=== PATIENT | female | born 1950 | race Caucasian/White ===

== ENCOUNTER → 2016-11-04 | Outpatient (CLI) | payer BC | LOC: SUN.DIA 08:47 | DX: E11.9 Type 2 diabetes mellitus without complications (principal); E78.5 Hyperlipidemia, unspecified; I10 Essential (primary) hypertension; Z68.36 Body mass index [BMI] 36.0-36.9, adult; Z71.3 Dietary counseling and surveillance; Z87.891 Personal history of nicotine dependence | CPT/HCPCS: G0108 ==

== ENCOUNTER → 2016-11-11 | Outpatient (CLI) | payer BC | LOC: SUN.DIA 10:45 | DX: E11.65 Type 2 diabetes mellitus with hyperglycemia (principal); E66.8 Other obesity; Z68.36 Body mass index [BMI] 36.0-36.9, adult; E78.5 Hyperlipidemia, unspecified; I10 Essential (primary) hypertension; Z71.3 Dietary counseling and surveillance; Z87.891 Personal history of nicotine dependence; Z79.84 Long term (current) use of oral hypoglycemic drugs | CPT/HCPCS: G0108 ==

== ENCOUNTER → 2016-12-14 | Outpatient (CLI) | payer BC | LOC: SUN.DIA 09:31 | DX: E11.9 Type 2 diabetes mellitus without complications (principal); E66.9 Obesity, unspecified; Z68.36 Body mass index [BMI] 36.0-36.9, adult; Z71.3 Dietary counseling and surveillance ==

== ENCOUNTER → 2016-12-23 | Outpatient (CLI) | payer BC | LOC: SUN.DIA 11:18 | DX: Z01.89 Encounter for other specified special examinations (principal) ==

== ENCOUNTER → 2016-12-23 | Outpatient (CLI) | payer BC | LOC: SUN.DIA 11:04 | DX: E11.9 Type 2 diabetes mellitus without complications (principal); Z68.36 Body mass index [BMI] 36.0-36.9, adult; Z71.3 Dietary counseling and surveillance; Z87.891 Personal history of nicotine dependence | CPT/HCPCS: G0108 ==

== ENCOUNTER 2017-04-11 20:08 | Inpatient (IN) | payer BC ==
[~2017-04-11] VITALS: Ht 162.6 cm; Wt 102.1 kg
[2017-04-11 21:39] LABS: HEMATOCRIT 42.1 % (37.0-47.0); HEMOGLOBIN 13.6 g/dl (12.5-16.0); MEAN CELL VOLUME 93 fl (80.0-100.0); MEAN CORPUSCULAR HEMOGLOBIN 30 pg (27.0-31.0); MEAN CORPUSCULAR HGB CONC 32 g/dl (33.0-37.0); MEAN PLATELET VOLUME 11.6 fl (7.4-10.4); PLATELET COUNT 299 K/mm3 (130-400); RED BLOOD COUNT 4.55 M/mm3 (4.10-5.30)
[2017-04-11] MEDS ORDERED: CEPHALEXIN500 M1 PO (21:43)
[2017-04-11] MEDS ORDERED: TRULICITY1.5 MG/0.5 SQ (21:43)
[2017-04-11] MEDS ORDERED: PRINIVIL10 MG PO (21:44)
[2017-04-11 21:45] LABS: ALBUMIN 4.2 gm/dL (3.5-5.0); CALCIUM 10.7 mg/dL (8.4-10.2); CREATININE, serum 0.74 mg/dL (0.52-1.25); POTASSIUM 4.2 mmol/L (3.4-5.0); TOTAL PROTEIN 7.7 gm/dL (6.4-8.2)
[2017-04-11] MEDS ORDERED: JENTADUETO 2.51 TAB PO (21:45)
[2017-04-11] MEDS ORDERED: ZOCOR 10MG10 MG PO (21:45)
[2017-04-11 21:54] LABS: BAND 25 % (0-10); LYMPHOCYTE 6 % (20.0-51.0); NEUTROPHILS 60 % (42.0-75.2)
[2017-04-11 21:55] LABS: PLATELET ESTIMATE NORMAL (NORMAL)
[2017-04-12] VITALS (915 sets, daily range): BP systolic 109–150; BP diastolic 54–82; PULSE 105–126; TEMP 98.7–99.3; O2SAT 87–100
[2017-04-12 03:09] LABS: BASO # 0.1 (0.0-0.2); BASO % 0.2 % (0.0-2.0); GRAN % 78.7 % (42.2-75.2); HEMOGLOBIN 12.1 g/dl (12.5-16.0); LYMPH # 1.9 (1.2-3.4); LYMPH % 8.4 % (20.0-51.0); MEAN CELL VOLUME 94 fl (80.0-100.0); MEAN CORPUSCULAR HEMOGLOBIN 30 pg (27.0-31.0); MEAN CORPUSCULAR HGB CONC 32 g/dl (33.0-37.0); MEAN PLATELET VOLUME 10.9 fl (7.4-10.4); MONO # 2.6 (0.1-0.6); MONO % 11.5 % (1.7-9.3); PLATELET COUNT 275 K/mm3 (130-400); RED BLOOD COUNT 4.05 M/mm3 (4.10-5.30); REDCELL DISTRIBUTION WIDTH-CV 13.9 % (11.5-14.5)
[2017-04-12 03:16] LABS: INR 1.1 (0.8-3.0); PROTHROMBIN TIME 13.3 SECONDS (9.7-12.8)
[2017-04-12 03:19] LABS: SALICYLATE < 1.0 mg/dL
[2017-04-12 03:19] LABS: ARTERIAL BLD GAS O2 SATURATION 94.9 % (92-100); ARTERIAL BLD GAS TCO2 CT 12.3; ARTERIAL BLOOD GAS BASE EXCESS -13.5 (-2-2); ARTERIAL BLOOD GAS HCO3 11.5 meq/L (22-26); ARTERIAL BLOOD GAS PCO2 25.1 mmHg (35-45); ARTERIAL BLOOD GAS PO2 80.8 mmHg (80-100); ARTERIAL BLOOD GAS pH 7.28 (7.35-7.45)
[2017-04-12 03:32] LABS: TROPONIN-I < 0.012 ng/mL (0.000-0.034)
[2017-04-12 04:15] LABS: ALBUMIN 3.6 gm/dL (3.5-5.0); BILIRUBIN,TOTAL 0.7 mg/dL (0.0-1.0); CALCIUM 10.1 mg/dL (8.4-10.2); CREATININE, serum 0.56 mg/dL (0.52-1.25); POTASSIUM 3.5 mmol/L (3.4-5.0); TOTAL PROTEIN 7.1 gm/dL (6.4-8.2)
[2017-04-12 04:51] LABS: MUCOUS Present /lpf; PH 5 (5-8); SQUAMOUS EPITHELIAL 0-2 /hpf; URINE APPEARANCE Hazy; URINE BACTERIA None Seen /hpf; URINE BILIRUBIN Negative (NEGATIVE); URINE BLOOD Negative (NEGATIVE); URINE COLOR Yellow; URINE GLUCOSE 3+ (NEGATIVE); URINE KETONE 1+ (NEGATIVE); URINE LEUKOCYTE ESTERASE Negative (NEGATIVE); URINE NITRATE Negative (NEGATIVE); URINE PROTEIN(semi-quant) 1+ (NEGATIVE); URINE RBC 0-2 /hpf; URINE UROBILINOGEN Negative (NEGATIVE)
[2017-04-12 04:57] LABS: COLLECTION METHOD CLEAN CATCH
[2017-04-12 09:07] LABS: CALCIUM 9.9 mg/dL (8.4-10.2); CREATININE, serum 0.46 mg/dL (0.52-1.25); POTASSIUM 3.2 mmol/L (3.4-5.0)
[2017-04-12 13:03] LABS: CALCIUM 9.1 mg/dL (8.4-10.2); CREATININE, serum 0.42 mg/dL (0.52-1.25); POTASSIUM 3.4 mmol/L (3.4-5.0)
[2017-04-12 20:46] LABS: CALCIUM 7.2 mg/dL (8.4-10.2); CREATININE, serum 0.39 mg/dL (0.52-1.25)
[2017-04-12 20:48] LABS: POTASSIUM 2.8 mmol/L (3.4-5.0)
[2017-04-13] VITALS (1088 sets, daily range): BP systolic 118–157; BP diastolic 63–94; PULSE 110–123; TEMP 97.9–99.9; O2SAT 95–100
[2017-04-13 05:49] LABS: INR 1.2 (0.8-3.0); PROTHROMBIN TIME 14.1 SECONDS (9.7-12.8)
[2017-04-13 05:50] LABS: ARTERIAL BLD GAS O2 SATURATION 94.1 % (92-100); ARTERIAL BLD GAS TCO2 CT 16.4; ARTERIAL BLOOD GAS BASE EXCESS -8.6 (-2-2); ARTERIAL BLOOD GAS HCO3 15.5 meq/L (22-26); ARTERIAL BLOOD GAS PCO2 27.7 mmHg (35-45); ARTERIAL BLOOD GAS PO2 68.1 mmHg (80-100); ARTERIAL BLOOD GAS pH 7.37 (7.35-7.45)
[2017-04-13 07:22] LABS: BASO % 0.2 % (0.0-2.0); CALCIUM 8.4 mg/dL (8.4-10.2); CREATININE, serum 0.47 mg/dL (0.52-1.25); EOS % 0.1 % (0-4.0); GRAN # 10.2 (1.4-6.5); GRAN % 75.7 % (42.2-75.2); LYMPH # 1.7 (1.2-3.4); LYMPH % 12.8 % (20.0-51.0); MEAN CELL VOLUME 93 fl (80.0-100.0); MEAN CORPUSCULAR HGB CONC 32 g/dl (33.0-37.0); MEAN PLATELET VOLUME 11.3 fl (7.4-10.4); MONO # 1.3 (0.1-0.6); MONO % 9.5 % (1.7-9.3); PLATELET COUNT 233 K/mm3 (130-400); POTASSIUM 3.2 mmol/L (3.4-5.0); RED BLOOD COUNT 3.48 M/mm3 (4.10-5.30); REDCELL DISTRIBUTION WIDTH-CV 14.4 % (11.5-14.5)
[2017-04-13 07:23] LABS: ALBUMIN 2.6 gm/dL (3.5-5.0); BILIRUBIN,TOTAL 0.6 mg/dL (0.0-1.0); HEMATOCRIT 32.5 % (37.0-47.0); HEMOGLOBIN 10.4 g/dl (12.5-16.0); MEAN CORPUSCULAR HEMOGLOBIN 30 pg (27.0-31.0); TOTAL PROTEIN 5.8 gm/dL (6.4-8.2)
[2017-04-13 21:50] LABS: CALCIUM 8.8 mg/dL (8.4-10.2); CREATININE, serum 0.42 mg/dL (0.52-1.25); POTASSIUM 3.7 mmol/L (3.4-5.0)
[2017-04-14] VITALS (491 sets, daily range): BP systolic 117–168; BP diastolic 70–87; PULSE 101–108; TEMP 98.5–99.3; O2SAT 82–100
[2017-04-14 05:56] LABS: BASO % 0.3 % (0.0-2.0); EOS # 0.4 (0.0-0.7); EOS % 2.5 % (0-4.0); GRAN # 9.9 (1.4-6.5); GRAN % 69.9 % (42.2-75.2); LYMPH # 2.4 (1.2-3.4); LYMPH % 17.2 % (20.0-51.0); MEAN CELL VOLUME 93 fl (80.0-100.0); MEAN CORPUSCULAR HGB CONC 32 g/dl (33.0-37.0); MEAN PLATELET VOLUME 10.4 fl (7.4-10.4); MONO # 1.3 (0.1-0.6); MONO % 8.9 % (1.7-9.3); PLATELET COUNT 269 K/mm3 (130-400); RED BLOOD COUNT 3.53 M/mm3 (4.10-5.30); REDCELL DISTRIBUTION WIDTH-CV 14.1 % (11.5-14.5)
[2017-04-14 05:58] LABS: HEMATOCRIT 32.7 % (37.0-47.0); HEMOGLOBIN 10.6 g/dl (12.5-16.0); MEAN CORPUSCULAR HEMOGLOBIN 30 pg (27.0-31.0)
[2017-04-14 06:04] LABS: INR 1.2 (0.8-3.0); PROTHROMBIN TIME 13.6 SECONDS (9.7-12.8)
[2017-04-14 06:11] LABS: ALBUMIN 2.6 gm/dL (3.5-5.0); BILIRUBIN,TOTAL 0.6 mg/dL (0.0-1.0); CALCIUM 8.5 mg/dL (8.4-10.2); CREATININE, serum 0.41 mg/dL (0.52-1.25); POTASSIUM 3.4 mmol/L (3.4-5.0); TOTAL PROTEIN 5.8 gm/dL (6.4-8.2)
[2017-04-15 00:51] VITALS: BP 125/68; PULSE 78; TEMP 98.2
[2017-04-15 04:59] VITALS: BP 131/66; PULSE 118; TEMP 98.2
[2017-04-15 06:46] LABS: MEAN CELL VOLUME 92 fl (80.0-100.0); MEAN CORPUSCULAR HGB CONC 32 g/dl (33.0-37.0); MEAN PLATELET VOLUME 10.4 fl (7.4-10.4); PLATELET COUNT 274 K/mm3 (130-400); RED BLOOD COUNT 3.58 M/mm3 (4.10-5.30); REDCELL DISTRIBUTION WIDTH-CV 13.9 % (11.5-14.5)
[2017-04-15 06:48] LABS: HEMATOCRIT 32.9 % (37.0-47.0); HEMOGLOBIN 10.6 g/dl (12.5-16.0); MEAN CORPUSCULAR HEMOGLOBIN 30 pg (27.0-31.0)
[2017-04-15 06:59] LABS: ALBUMIN 2.5 gm/dL (3.5-5.0); BILIRUBIN,TOTAL 0.5 mg/dL (0.0-1.0); CALCIUM 8.4 mg/dL (8.4-10.2); CREATININE, serum 0.42 mg/dL (0.52-1.25); POTASSIUM 3.4 mmol/L (3.4-5.0); TOTAL PROTEIN 5.6 gm/dL (6.4-8.2)
[2017-04-15 07:20] LABS: BAND 5 % (0-10); EOSINOPHIL 9 % (0-4); LYMPHOCYTE 31 % (20.0-51.0); NEUTROPHILS 46 % (42.0-75.2); NUCLEATED RED BLOOD CELL 1 (0-6); PLATELET ESTIMATE NORMAL (NORMAL)
[2017-04-15 07:21] LABS: TOXIC GRANULATION PRESENT
[2017-04-15 09:23] VITALS: BP 120/65; PULSE 120; TEMP 98.7
[2017-04-15 14:00] VITALS: BP 119/69; PULSE 109; TEMP 98.1
[2017-04-15 17:39] VITALS: BP 140/77; PULSE 109; TEMP 98.1
[2017-04-15 20:54] VITALS: BP 129/89; PULSE 104; TEMP 98.4
[2017-04-16 02:14] VITALS: BP 151/68; PULSE 119; TEMP 98.4
[2017-04-16 05:06] VITALS: BP 138/79; PULSE 98; TEMP 98.2
[2017-04-16 10:00] VITALS: BP 137/59; PULSE 103; TEMP 98.6
[2017-04-16 10:35] LABS: MEAN CELL VOLUME 92 fl (80.0-100.0); MEAN CORPUSCULAR HGB CONC 33 g/dl (33.0-37.0); MEAN PLATELET VOLUME 10.2 fl (7.4-10.4); PLATELET COUNT 334 K/mm3 (130-400); RED BLOOD COUNT 3.67 M/mm3 (4.10-5.30); REDCELL DISTRIBUTION WIDTH-CV 13.9 % (11.5-14.5)
[2017-04-16 10:37] LABS: HEMATOCRIT 33.8 % (37.0-47.0); MEAN CORPUSCULAR HEMOGLOBIN 30 pg (27.0-31.0)
[2017-04-16 10:43] LABS: ALBUMIN 2.7 gm/dL (3.5-5.0); BILIRUBIN,TOTAL 0.4 mg/dL (0.0-1.0); CALCIUM 8.1 mg/dL (8.4-10.2); CREATININE, serum 0.39 mg/dL (0.52-1.25); MAGNESIUM 1.9 mg/dL (1.6-2.3); POTASSIUM 3.2 mmol/L (3.4-5.0); TOTAL PROTEIN 5.7 gm/dL (6.4-8.2)
[2017-04-16 10:57] LABS: BAND 4 % (0-10); EOSINOPHIL 6 % (0-4); HYPOCHROMIA 1+; LYMPHOCYTE 27 % (20.0-51.0); NEUTROPHILS 58 % (42.0-75.2); PLATELET ESTIMATE NORMAL (NORMAL)
[2017-04-16 14:00] VITALS: BP 118/55; PULSE 112; TEMP 98
[2017-04-16 18:19] VITALS: BP 118/70; PULSE 104; TEMP 98.8
[2017-04-16 21:17] VITALS: BP 131/63; PULSE 113; TEMP 98.9
[2017-04-17 01:41] VITALS: BP 125/72; PULSE 98; TEMP 98.4
[2017-04-17 06:00] VITALS: BP 129/85; PULSE 80; TEMP 98.7
[2017-04-17 10:00] VITALS: BP 126/64; PULSE 102; TEMP 98.8
[2017-04-17 14:13] VITALS: BP 137/67; PULSE 100; TEMP 98.9
[2017-04-17 17:49] VITALS: BP 129/57; PULSE 102; TEMP 99
[2017-04-17 21:23] VITALS: BP 126/62; PULSE 98; TEMP 99
[2017-04-18 06:00] VITALS: BP 127/51; PULSE 100; TEMP 98.5
[2017-04-18 07:04] LABS: MEAN CELL VOLUME 94 fl (80.0-100.0); MEAN CORPUSCULAR HGB CONC 32 g/dl (33.0-37.0); MEAN PLATELET VOLUME 9.8 fl (7.4-10.4); RED BLOOD COUNT 3.48 M/mm3 (4.10-5.30)
[2017-04-18 07:23] LABS: HEMATOCRIT 32.6 % (37.0-47.0); HEMOGLOBIN 10.3 g/dl (12.5-16.0); MEAN CORPUSCULAR HEMOGLOBIN 30 pg (27.0-31.0)
[2017-04-18 07:24] LABS: PLATELET COUNT 450 K/mm3 (130-400)
[2017-04-18 07:28] LABS: ALBUMIN 2.8 gm/dL (3.5-5.0); BILIRUBIN,TOTAL 0.3 mg/dL (0.0-1.0); CALCIUM 8.6 mg/dL (8.4-10.2); CREATININE, serum 0.42 mg/dL (0.52-1.25); MAGNESIUM 1.9 mg/dL (1.6-2.3); PHOSPHOROUS 3.6 mg/dL (2.5-4.5); POTASSIUM 3.9 mmol/L (3.4-5.0)
[2017-04-18 09:18] VITALS: BP 126/66; PULSE 95; TEMP 98.7
[2017-04-18 09:21] LABS: BAND 28 % (0-10); LYMPHOCYTE 46 % (20.0-51.0); NEUTROPHILS 26 % (42.0-75.2); PLATELET ESTIMATE INCREASED (NORMAL)
[2017-04-18 13:30] VITALS: BP 131/65; PULSE 103; TEMP 99.2
[2017-04-18 17:36] VITALS: BP 153/86; PULSE 110; TEMP 98
[2017-04-18 21:10] VITALS: BP 151/85; PULSE 110; TEMP 98.2
[2017-04-19 01:19] VITALS: BP 152/74; PULSE 108; TEMP 98.2
[2017-04-19 05:39] VITALS: BP 146/75; PULSE 111; TEMP 98.4
[2017-04-19 07:25] LABS: ALBUMIN 3.1 gm/dL (3.5-5.0); BILIRUBIN,TOTAL 0.5 mg/dL (0.0-1.0); CALCIUM 8.6 mg/dL (8.4-10.2); CREATININE, serum 0.35 mg/dL (0.52-1.25); POTASSIUM 4.3 mmol/L (3.4-5.0); TOTAL PROTEIN 6.3 gm/dL (6.4-8.2)
[2017-04-19] MEDS ORDERED: AMOXICILLIN 8751 TAB PO (09:09)
[2017-04-19 09:33] VITALS: BP 136/76; PULSE 117; TEMP 97.5
[2017-04-19 13:36] VITALS: BP 137/83; PULSE 133; TEMP 98.2
[2017-04-19] MEDS ORDERED: ULTRAM 50MG TAB50 MG PO (16:55)
== END 2017-04-19 17:36 | disposition home or self-care (01) | DRG 853 ==
LOC: COL.ER 20:08 → ICU 22:01 → SURG 04-14 10:56
PROVIDERS: Emergency Medicine; Internal Medicine; Nurse Practitioner; Nurse Practitioner Family; Surgery
PROC: 0FT44ZZ Resection of Gallbladder, Percutaneous Endoscopic Approach (ICD-10-PCS; principal; 2017-04-12 14:00)
DX: A41.9 Sepsis, unspecified organism (principal); E11.10 Type 2 diabetes mellitus with ketoacidosis without coma; K80.12 Calculus of gallbladder with acute and chronic cholecystitis without obstruction; L03.116 Cellulitis of left lower limb; I83.222 Varicose veins of left lower extremity with both ulcer of calf and inflammation; I10 Essential (primary) hypertension; B95.61 Methicillin susceptible Staphylococcus aureus infection as the cause of diseases classified elsewhere; B95.2 Enterococcus as the cause of diseases classified elsewhere
CPT/HCPCS: 99223; 99232-AI; 99233-AI; A9284; C1751; C1894; J1170; J1335; J1644; J1815; J2270; J2405; J2543; J2704; J2765; J3010; J3370; J3480; J7030; J7050; J7060; J7070; Q9967

== ENCOUNTER → 2017-04-11 | Outpatient (CLI) | payer BC ==
[~2017-04-11] MED LIST: CEPHALEXIN500 M1 PO; JENTADUETO 2.51 TAB PO; PRINIVIL10 MG PO; TRULICITY1.5 MG/0.5 SQ; ZOCOR 10MG10 MG PO
== END ==
LOC: COL.RAD 12:50
DX: K81.0 Acute cholecystitis (principal); K76.89 Other specified diseases of liver; K63.89 Other specified diseases of intestine
CPT/HCPCS: Q9967

== ENCOUNTER → 2017-05-23 | Outpatient (CLI) | payer BC ==
[~2017-05-23] MED LIST changes: +AMOXICILLIN 8751 TAB PO; +ULTRAM 50MG TAB50 MG PO
== END ==
LOC: ZCOL.LAB 14:24
DX: I83.009 Varicose veins of unspecified lower extremity with ulcer of unspecified site (principal)

== ENCOUNTER 2017-07-01 13:23 | Inpatient (IN) | payer MEDICARE ==
[~2017-07-01] VITALS: Ht 162.6 cm; Wt 83.5 kg
[2017-07-01 14:27] VITALS: BP 112/71; PULSE 122; TEMP 98.7
[2017-07-01 15:22] LABS: MUCOUS Present /lpf; PH 5 (5-8); SQUAMOUS EPITHELIAL None Seen /hpf; URINE APPEARANCE Clear; URINE BACTERIA None Seen /hpf; URINE BILIRUBIN Negative (NEGATIVE); URINE BLOOD Negative (NEGATIVE); URINE COLOR Yellow; URINE GLUCOSE 3+ (NEGATIVE); URINE KETONE Trace (NEGATIVE); URINE LEUKOCYTE ESTERASE Negative (NEGATIVE); URINE NITRATE Negative (NEGATIVE); URINE PROTEIN(semi-quant) 1+ (NEGATIVE); URINE RBC 0-2 /hpf; URINE UROBILINOGEN Negative (NEGATIVE)
[2017-07-01 15:24] LABS: BASO # 0.1 (0.0-0.2); BASO % 0.4 % (0.0-2.0); EOS # 0.1 (0.0-0.7); EOS % 0.5 % (0-4.0); GRAN # 11.2 (1.4-6.5); HEMATOCRIT 39.6 % (37.0-47.0); HEMOGLOBIN 13.1 g/dl (12.5-16.0); LYMPH # 2.7 (1.2-3.4); LYMPH % 17.6 % (20.0-51.0); MEAN CELL VOLUME 87 fl (80.0-100.0); MEAN CORPUSCULAR HEMOGLOBIN 29 pg (27.0-31.0); MEAN CORPUSCULAR HGB CONC 33 g/dl (33.0-37.0); MONO # 1.4 (0.1-0.6); PLATELET COUNT 528 K/mm3 (130-400); RED BLOOD COUNT 4.57 M/mm3 (4.10-5.30); REDCELL DISTRIBUTION WIDTH-CV 15.2 % (11.5-14.5)
[2017-07-01 15:27] LABS: COLLECTION METHOD CLEAN CATCH
[2017-07-01 15:32] LABS: ALBUMIN 3.9 gm/dL (3.5-5.0); BILIRUBIN,TOTAL 0.7 mg/dL (0.0-1.0); CALCIUM 9.3 mg/dL (8.4-10.2); CREATININE, serum 0.42 mg/dL (0.52-1.25); POTASSIUM 3.4 mmol/L (3.4-5.0)
[2017-07-01 16:27] VITALS: BP 130/81; PULSE 124; TEMP 98.4
[2017-07-01 20:56] VITALS: BP 134/64; PULSE 113; TEMP 98.6
[2017-07-02 00:35] VITALS: BP 142/67; PULSE 104; TEMP 98.6
[2017-07-02 02:00] LABS: COLLECTION METHOD CATHETER
[2017-07-02 02:07] LABS: MUCOUS Present /lpf; PH 5 (5-8); SQUAMOUS EPITHELIAL 0-2 /hpf; URINE APPEARANCE Clear; URINE BACTERIA None Seen /hpf; URINE BILIRUBIN Negative (NEGATIVE); URINE BLOOD Negative (NEGATIVE); URINE COLOR Yellow; URINE GLUCOSE 3+ (NEGATIVE); URINE KETONE 1+ (NEGATIVE); URINE LEUKOCYTE ESTERASE Negative (NEGATIVE); URINE NITRATE Negative (NEGATIVE); URINE PROTEIN(semi-quant) 1+ (NEGATIVE); URINE UROBILINOGEN Negative (NEGATIVE)
[2017-07-02 05:41] VITALS: BP 154/84; PULSE 103; TEMP 98.6
[2017-07-02 06:39] LABS: BASO # 0.1 (0.0-0.2); BASO % 0.6 % (0.0-2.0); EOS # 0.1 (0.0-0.7); EOS % 0.9 % (0-4.0); GRAN % 65.1 % (42.2-75.2); HEMATOCRIT 38.2 % (37.0-47.0); HEMOGLOBIN 12.3 g/dl (12.5-16.0); LYMPH # 2.8 (1.2-3.4); LYMPH % 22.5 % (20.0-51.0); MEAN CELL VOLUME 89 fl (80.0-100.0); MEAN CORPUSCULAR HEMOGLOBIN 29 pg (27.0-31.0); MEAN CORPUSCULAR HGB CONC 32 g/dl (33.0-37.0); MEAN PLATELET VOLUME 10.3 fl (7.4-10.4); MONO # 1.3 (0.1-0.6); MONO % 10.5 % (1.7-9.3); PLATELET COUNT 499 K/mm3 (130-400); REDCELL DISTRIBUTION WIDTH-CV 15.1 % (11.5-14.5)
[2017-07-02 06:44] LABS: ALBUMIN 3.5 gm/dL (3.5-5.0); BILIRUBIN,TOTAL 0.6 mg/dL (0.0-1.0); CALCIUM 8.6 mg/dL (8.4-10.2); CREATININE, serum 0.4 mg/dL (0.52-1.25); TOTAL PROTEIN 7.1 gm/dL (6.4-8.2)
[2017-07-02 07:06] LABS: POTASSIUM 2.7 mmol/L (3.4-5.0)
[2017-07-02 07:27] VITALS: BP 129/61; PULSE 97; TEMP 99
[2017-07-02 11:57] VITALS: BP 148/88; PULSE 109; TEMP 98.4
[2017-07-02 16:00] VITALS: BP 128/58; PULSE 100; TEMP 99.1
[2017-07-02 19:20] VITALS: BP 133/72; PULSE 110; TEMP 99.2
[2017-07-03] VITALS (7 sets, daily range): BP systolic 114–148; BP diastolic 62–116; PULSE 94–103; TEMP 98.3–99.1
[2017-07-03 06:36] LABS: BASO # 0.1 (0.0-0.2); BASO % 0.4 % (0.0-2.0); EOS # 0.2 (0.0-0.7); EOS % 1.5 % (0-4.0); GRAN # 7.3 (1.4-6.5); GRAN % 62.1 % (42.2-75.2); LYMPH % 25.5 % (20.0-51.0); MEAN CELL VOLUME 89 fl (80.0-100.0); MEAN CORPUSCULAR HEMOGLOBIN 28 pg (27.0-31.0); MEAN CORPUSCULAR HGB CONC 32 g/dl (33.0-37.0); MEAN PLATELET VOLUME 10.5 fl (7.4-10.4); MONO # 1.2 (0.1-0.6); MONO % 10.2 % (1.7-9.3); PLATELET COUNT 466 K/mm3 (130-400); RED BLOOD COUNT 4.16 M/mm3 (4.10-5.30)
[2017-07-03 06:38] LABS: HEMOGLOBIN 11.8 g/dl (12.5-16.0)
[2017-07-03 06:44] LABS: IRON,SERUM 46 ug/dL (35-150)
[2017-07-03 06:45] LABS: ALBUMIN 3.2 gm/dL (3.5-5.0); BILIRUBIN,TOTAL 0.6 mg/dL (0.0-1.0); CALCIUM 8.4 mg/dL (8.4-10.2); CREATININE, serum 0.35 mg/dL (0.52-1.25); POTASSIUM 3.5 mmol/L (3.4-5.0); TOTAL PROTEIN 6.7 gm/dL (6.4-8.2)
[2017-07-03 07:19] LABS: FERRITIN 595 ng/mL (11-264)
[2017-07-03 07:27] LABS: TOTAL IRON BINDING CAPACITY 252 ug/dL (265-497)
[2017-07-04 03:37] VITALS: BP 131/73; PULSE 90; TEMP 98.5
[2017-07-04 06:35] LABS: BASO # 0.1 (0.0-0.2); BASO % 0.6 % (0.0-2.0); EOS # 0.2 (0.0-0.7); EOS % 2.2 % (0-4.0); GRAN # 6.6 (1.4-6.5); GRAN % 59.1 % (42.2-75.2); HEMATOCRIT 37.1 % (37.0-47.0); LYMPH % 27.1 % (20.0-51.0); MEAN CELL VOLUME 89 fl (80.0-100.0); MEAN CORPUSCULAR HEMOGLOBIN 28 pg (27.0-31.0); MEAN CORPUSCULAR HGB CONC 32 g/dl (33.0-37.0); MONO # 1.2 (0.1-0.6); MONO % 10.5 % (1.7-9.3); PLATELET COUNT 445 K/mm3 (130-400); RED BLOOD COUNT 4.15 M/mm3 (4.10-5.30); REDCELL DISTRIBUTION WIDTH-CV 14.7 % (11.5-14.5)
[2017-07-04 06:40] LABS: HEMOGLOBIN 11.8 g/dl (12.5-16.0); INR 1.2 (0.8-3.0); PROTHROMBIN TIME 13.7 SECONDS (9.7-12.8)
[2017-07-04 06:54] LABS: ALBUMIN 3.2 gm/dL (3.5-5.0); BILIRUBIN,TOTAL 0.4 mg/dL (0.0-1.0); CALCIUM 8.2 mg/dL (8.4-10.2); CREATININE, serum 0.38 mg/dL (0.52-1.25); TOTAL PROTEIN 6.5 gm/dL (6.4-8.2)
[2017-07-04 07:34] VITALS: BP 130/65; PULSE 90; TEMP 98.5
[2017-07-04 12:22] VITALS: BP 139/72; PULSE 102; TEMP 97.8
[2017-07-04 15:58] VITALS: BP 126/67; PULSE 96; TEMP 97.8
[2017-07-04 19:19] VITALS: BP 142/72; PULSE 102; TEMP 98.9
[2017-07-04 21:58] LABS: ANA SCREEN with REFLEX Negative (Negative)
[2017-07-05] VITALS (8 sets, daily range): BP systolic 109–147; BP diastolic 63–78; PULSE 88–111; TEMP 98–99
[2017-07-05 07:02] LABS: BASO # 0.1 (0.0-0.2); BASO % 0.6 % (0.0-2.0); EOS # 0.3 (0.0-0.7); EOS % 2.5 % (0-4.0); GRAN # 6.8 (1.4-6.5); GRAN % 60.9 % (42.2-75.2); HEMATOCRIT 37.7 % (37.0-47.0); HEMOGLOBIN 12.4 g/dl (12.5-16.0); LYMPH # 2.9 (1.2-3.4); LYMPH % 25.8 % (20.0-51.0); MEAN CELL VOLUME 88 fl (80.0-100.0); MEAN CORPUSCULAR HEMOGLOBIN 29 pg (27.0-31.0); MEAN CORPUSCULAR HGB CONC 33 g/dl (33.0-37.0); MEAN PLATELET VOLUME 10.5 fl (7.4-10.4); MONO # 1.1 (0.1-0.6); MONO % 9.7 % (1.7-9.3); PLATELET COUNT 474 K/mm3 (130-400); REDCELL DISTRIBUTION WIDTH-CV 14.6 % (11.5-14.5)
[2017-07-05 07:08] LABS: ALBUMIN 3.2 gm/dL (3.5-5.0); BILIRUBIN,TOTAL 0.4 mg/dL (0.0-1.0); CALCIUM 8.4 mg/dL (8.4-10.2); CREATININE, serum 0.37 mg/dL (0.52-1.25); MAGNESIUM 1.8 mg/dL (1.6-2.3); POTASSIUM 3.3 mmol/L (3.4-5.0); TOTAL PROTEIN 6.5 gm/dL (6.4-8.2)
[2017-07-06 03:47] VITALS: BP 127/69; PULSE 112; TEMP 98.4
[2017-07-06 07:21] LABS: BASO % 0.4 % (0.0-2.0); EOS # 0.2 (0.0-0.7); EOS % 1.9 % (0-4.0); GRAN # 5.7 (1.4-6.5); GRAN % 58.9 % (42.2-75.2); HEMATOCRIT 39.1 % (37.0-47.0); HEMOGLOBIN 12.7 g/dl (12.5-16.0); LYMPH # 2.6 (1.2-3.4); LYMPH % 26.7 % (20.0-51.0); MEAN CELL VOLUME 87 fl (80.0-100.0); MEAN CORPUSCULAR HEMOGLOBIN 28 pg (27.0-31.0); MEAN CORPUSCULAR HGB CONC 33 g/dl (33.0-37.0); MEAN PLATELET VOLUME 10.7 fl (7.4-10.4); MONO # 1.1 (0.1-0.6); MONO % 11.6 % (1.7-9.3); PLATELET COUNT 478 K/mm3 (130-400); RED BLOOD COUNT 4.48 M/mm3 (4.10-5.30); REDCELL DISTRIBUTION WIDTH-CV 14.7 % (11.5-14.5)
[2017-07-06 07:38] LABS: ALBUMIN 3.3 gm/dL (3.5-5.0); BILIRUBIN,TOTAL 0.5 mg/dL (0.0-1.0); CALCIUM 8.6 mg/dL (8.4-10.2); CREATININE, serum 0.42 mg/dL (0.52-1.25); MAGNESIUM 1.9 mg/dL (1.6-2.3); POTASSIUM 3.7 mmol/L (3.4-5.0)
[2017-07-06 08:09] VITALS: BP 138/75; PULSE 94; TEMP 98.8
[2017-07-06 11:32] VITALS: BP 130/78; PULSE 98; TEMP 98
[2017-07-06 16:14] VITALS: BP 115/64; PULSE 111; TEMP 98.5
[2017-07-06 19:14] VITALS: BP 103/61; PULSE 99; TEMP 99.7
[2017-07-06 20:12] LABS: ALPHA 1 ANTITRYPSIN TOTAL 178 mg/dL (())
[2017-07-07] VITALS (7 sets, daily range): BP systolic 102–138; BP diastolic 51–77; PULSE 79–103; TEMP 97.9–99.4
[2017-07-07 07:01] LABS: MEAN CELL VOLUME 89 fl (80.0-100.0); MEAN CORPUSCULAR HGB CONC 32 g/dl (33.0-37.0); MEAN PLATELET VOLUME 10.5 fl (7.4-10.4); PLATELET COUNT 417 K/mm3 (130-400); RED BLOOD COUNT 4.04 M/mm3 (4.10-5.30); REDCELL DISTRIBUTION WIDTH-CV 14.9 % (11.5-14.5)
[2017-07-07 07:08] LABS: HEMATOCRIT 35.8 % (37.0-47.0); HEMOGLOBIN 11.5 g/dl (12.5-16.0); MEAN CORPUSCULAR HEMOGLOBIN 28 pg (27.0-31.0)
[2017-07-07 07:24] LABS: ALBUMIN 3.1 gm/dL (3.5-5.0); BILIRUBIN,TOTAL 0.4 mg/dL (0.0-1.0); CALCIUM 8.4 mg/dL (8.4-10.2); CREATININE, serum 0.37 mg/dL (0.52-1.25); POTASSIUM 3.6 mmol/L (3.4-5.0); TOTAL PROTEIN 6.4 gm/dL (6.4-8.2)
[2017-07-07 09:05] LABS: BAND 1 % (0-10); EOSINOPHIL 1 % (0-4); LYMPHOCYTE 40 % (20.0-51.0); NEUTROPHILS 55 % (42.0-75.2); PLATELET ESTIMATE INCREASED (NORMAL)
[2017-07-08] VITALS (14 sets, daily range): BP systolic 120–151; BP diastolic 60–88; PULSE 79–96; TEMP 98–98.7
[2017-07-08 07:18] LABS: BASO # 0.1 (0.0-0.2); BASO % 0.6 % (0.0-2.0); EOS # 0.3 (0.0-0.7); EOS % 3.1 % (0-4.0); GRAN # 4.4 (1.4-6.5); GRAN % 49.2 % (42.2-75.2); LYMPH # 3.3 (1.2-3.4); LYMPH % 36.4 % (20.0-51.0); MEAN CELL VOLUME 91 fl (80.0-100.0); MEAN CORPUSCULAR HGB CONC 31 g/dl (33.0-37.0); MEAN PLATELET VOLUME 10.7 fl (7.4-10.4); MONO # 0.9 (0.1-0.6); MONO % 10.3 % (1.7-9.3); PLATELET COUNT 412 K/mm3 (130-400); RED BLOOD COUNT 3.99 M/mm3 (4.10-5.30); REDCELL DISTRIBUTION WIDTH-CV 14.9 % (11.5-14.5)
[2017-07-08 07:22] LABS: HEMATOCRIT 36.4 % (37.0-47.0); HEMOGLOBIN 11.4 g/dl (12.5-16.0); MEAN CORPUSCULAR HEMOGLOBIN 29 pg (27.0-31.0)
[2017-07-08 07:25] LABS: ALBUMIN 3.2 gm/dL (3.5-5.0); BILIRUBIN,TOTAL 0.3 mg/dL (0.0-1.0); CALCIUM 8.5 mg/dL (8.4-10.2); CREATININE, serum 0.37 mg/dL (0.52-1.25); MAGNESIUM 1.7 mg/dL (1.6-2.3); POTASSIUM 3.7 mmol/L (3.4-5.0); TOTAL PROTEIN 6.8 gm/dL (6.4-8.2)
[2017-07-08 10:01] LABS: INR 1.1 (0.8-3.0); PROTHROMBIN TIME 12.4 SECONDS (9.7-12.8)
[2017-07-08 11:31] LABS: ANTISMOOTH MUSCLE ANTIBODY Negative (Negative)
[2017-07-09 03:43] VITALS: BP 132/62; PULSE 85; TEMP 98.4
[2017-07-09 07:36] LABS: BASO # 0.1 (0.0-0.2); BASO % 0.5 % (0.0-2.0); EOS # 0.2 (0.0-0.7); EOS % 2.2 % (0-4.0); GRAN # 4.9 (1.4-6.5); GRAN % 51.9 % (42.2-75.2); LYMPH # 3.3 (1.2-3.4); LYMPH % 35.1 % (20.0-51.0); MEAN CELL VOLUME 91 fl (80.0-100.0); MEAN CORPUSCULAR HGB CONC 32 g/dl (33.0-37.0); MEAN PLATELET VOLUME 10.4 fl (7.4-10.4); PLATELET COUNT 412 K/mm3 (130-400); RED BLOOD COUNT 4.01 M/mm3 (4.10-5.30); REDCELL DISTRIBUTION WIDTH-CV 15.1 % (11.5-14.5)
[2017-07-09 07:46] LABS: HEMATOCRIT 36.3 % (37.0-47.0); HEMOGLOBIN 11.6 g/dl (12.5-16.0); MEAN CORPUSCULAR HEMOGLOBIN 29 pg (27.0-31.0)
[2017-07-09 08:00] VITALS: BP 148/80; PULSE 95; TEMP 98.4
[2017-07-09 08:00] LABS: ALBUMIN 3.2 gm/dL (3.5-5.0); BILIRUBIN,TOTAL 0.3 mg/dL (0.0-1.0); CALCIUM 8.6 mg/dL (8.4-10.2); CREATININE, serum 0.44 mg/dL (0.52-1.25); POTASSIUM 3.7 mmol/L (3.4-5.0); TOTAL PROTEIN 6.7 gm/dL (6.4-8.2)
[2017-07-09] MEDS ORDERED: NEURONTIN100 MG/CAP PO (10:53)
[2017-07-09] MEDS ORDERED: AMOXICILLIN 8751 TAB PO (10:53)
[2017-07-09] MEDS ORDERED: MIRALAX PA17 GM/Dose PO (10:55)
== END 2017-07-09 13:05 | disposition home or self-care (01) | DRG 253 ==
LOC: MEDICAL 13:23
PROVIDERS: Internal Medicine; Internal Medicine Gastroenterology; Nurse Practitioner Family; Physician Assistant
PROC: 0FC98ZZ Extirpation of Matter from Common Bile Duct, Via Natural or Artificial Opening Endoscopic (ICD-10-PCS; 2017-07-06)
PROC: 047N341 Dilation of Left Popliteal Artery with Drug-eluting Intraluminal Device, using Drug-Coated Balloon, Percutaneous Approach (ICD-10-PCS; principal; 2017-07-08)
PROC: 047Q3ZZ Dilation of Left Anterior Tibial Artery, Percutaneous Approach (ICD-10-PCS; 2017-07-08)
DX: I70.262 Atherosclerosis of native arteries of extremities with gangrene, left leg (principal); E44.0 Moderate protein-calorie malnutrition; K80.50 Calculus of bile duct without cholangitis or cholecystitis without obstruction; E11.52 Type 2 diabetes mellitus with diabetic peripheral angiopathy with gangrene; K56.41 Fecal impaction; I10 Essential (primary) hypertension; Z87.891 Personal history of nicotine dependence; E11.42 Type 2 diabetes mellitus with diabetic polyneuropathy; E87.6 Hypokalemia; E83.42 Hypomagnesemia; L97.524 Non-pressure chronic ulcer of other part of left foot with necrosis of bone; R33.9 Retention of urine, unspecified; N39.3 Stress incontinence (female) (male)
CPT/HCPCS: 99223-AI; 99232-AI; 99233-AI; 99239; C1725; C1760; C1769; C1887; C1894; C2623; J1644; J1650; J1815; J2250; J2543; J2704; J3010; J3475; J7030; Q9967

== ENCOUNTER 2017-07-12 06:55 | Day surgery (SDC) | payer MEDICARE ==
[~2017-07-12] VITALS: Ht 162.6 cm; Wt 85.8 kg
[~2017-07-12 06:55] MED LIST changes: +MIRALAX PA17 GM/Dose PO; +NEURONTIN100 MG/CAP PO
[2017-07-12 08:27] VITALS: BP 141/79; PULSE 111; TEMP 98.2
[2017-07-12 10:25] VITALS: BP 101/49; PULSE 81
[2017-07-12 10:39] VITALS: BP 102/46; PULSE 60
[2017-07-12 10:54] VITALS: BP 100/39; PULSE 74
[2017-07-12 11:09] VITALS: BP 112/62; PULSE 75
[2017-07-12 11:24] VITALS: BP 112/62; PULSE 75
[2017-07-12] MEDS ORDERED: ULTRAM 50MG TAB50 MG PO (11:25)
== END 2017-07-12 11:55 | disposition home or self-care (01) ==
LOC: SDCO 06:55
DX: E11.52 Type 2 diabetes mellitus with diabetic peripheral angiopathy with gangrene (principal); I96 Gangrene, not elsewhere classified; E11.69 Type 2 diabetes mellitus with other specified complication; M86.172 Other acute osteomyelitis, left ankle and foot; M19.90 Unspecified osteoarthritis, unspecified site; E78.00 Pure hypercholesterolemia, unspecified; Z82.49 Family history of ischemic heart disease and other diseases of the circulatory system; Z80.42 Family history of malignant neoplasm of prostate; Z90.49 Acquired absence of other specified parts of digestive tract; I10 Essential (primary) hypertension; Z87.891 Personal history of nicotine dependence
CPT/HCPCS: J0690; J2250; J2405; J2704; J3010; J7030

== ENCOUNTER → 2017-08-05 | Outpatient (CLI) | payer MEDICARE | LOC: ZCOL.LAB 14:09 | DX: E11.621 Type 2 diabetes mellitus with foot ulcer (principal) ==

== ENCOUNTER 2017-08-12 11:56 | Inpatient (IN) | payer MEDICARE, OTHER ==
[~2017-08-12] VITALS: Ht 162.6 cm; Wt 86.4 kg
[2017-08-12 13:41] VITALS: BP 126/71; PULSE 95; TEMP 98.2
[2017-08-12 13:43] VITALS: BP 126/71; PULSE 95; TEMP 98.2
[2017-08-12 14:50] LABS: BASO # 0.1 (0.0-0.2); BASO % 0.6 % (0.0-2.0); EOS # 0.4 (0.0-0.7); EOS % 2.8 % (0-4.0); GRAN # 8.2 (1.4-6.5); GRAN % 64.2 % (42.2-75.2); HEMOGLOBIN 11.1 g/dl (12.5-16.0); LYMPH # 3.2 (1.2-3.4); LYMPH % 25.3 % (20.0-51.0); MEAN CELL VOLUME 89 fl (80.0-100.0); MEAN CORPUSCULAR HEMOGLOBIN 28 pg (27.0-31.0); MEAN CORPUSCULAR HGB CONC 32 g/dl (33.0-37.0); MEAN PLATELET VOLUME 9.3 fl (7.4-10.4); MONO # 0.8 (0.1-0.6); MONO % 6.2 % (1.7-9.3); PLATELET COUNT 520 K/mm3 (130-400); RED BLOOD COUNT 3.92 M/mm3 (4.10-5.30); REDCELL DISTRIBUTION WIDTH-CV 14.2 % (11.5-14.5)
[2017-08-12 14:51] LABS: HEMATOCRIT 34.9 % (37.0-47.0)
[2017-08-12 15:01] LABS: ALBUMIN 3.8 gm/dL (3.5-5.0); BILIRUBIN,TOTAL 0.3 mg/dL (0.0-1.0); C-REACTIVE PROTEIN 6.1 mg/dL (0.0-0.9); CALCIUM 9.7 mg/dL (8.4-10.2); CREATININE, serum 0.6 mg/dL (0.52-1.25); POTASSIUM 4.1 mmol/L (3.4-5.0); TOTAL PROTEIN 8.3 gm/dL (6.4-8.2)
[2017-08-12 15:16] LABS: ERYTHROCYTE SEDIMENTATION RATE 118 mm/hr (0-30)
[2017-08-12 16:49] VITALS: BP 130/64; PULSE 86; TEMP 98.3
[2017-08-12 20:00] VITALS: BP 93/47; PULSE 98; TEMP 98.6
[2017-08-13] VITALS (14 sets, daily range): BP systolic 96–150; BP diastolic 53–122; PULSE 82–100; TEMP 98–98.6
[2017-08-13 07:55] LABS: BASO # 0.1 (0.0-0.2); BASO % 0.8 % (0.0-2.0); EOS # 0.3 (0.0-0.7); EOS % 2.9 % (0-4.0); GRAN # 6.5 (1.4-6.5); GRAN % 58.1 % (42.2-75.2); LYMPH # 3.3 (1.2-3.4); LYMPH % 29.6 % (20.0-51.0); MEAN CELL VOLUME 88 fl (80.0-100.0); MEAN CORPUSCULAR HEMOGLOBIN 28 pg (27.0-31.0); MEAN CORPUSCULAR HGB CONC 32 g/dl (33.0-37.0); MEAN PLATELET VOLUME 9.3 fl (7.4-10.4); MONO # 0.8 (0.1-0.6); MONO % 7.4 % (1.7-9.3); PLATELET COUNT 507 K/mm3 (130-400); REDCELL DISTRIBUTION WIDTH-CV 14.2 % (11.5-14.5)
[2017-08-13 07:58] LABS: HEMATOCRIT 34.4 % (37.0-47.0)
[2017-08-13 08:03] LABS: CALCIUM 9.4 mg/dL (8.4-10.2); CREATININE, serum 0.42 mg/dL (0.52-1.25); POTASSIUM 4.6 mmol/L (3.4-5.0)
[2017-08-14] VITALS: BP 128/66; PULSE 83; TEMP 98.4
[2017-08-14 04:00] VITALS: BP 140/73; PULSE 97; TEMP 99.1
[2017-08-14 07:33] VITALS: BP 126/74; PULSE 87; TEMP 99.4
[2017-08-14 09:40] LABS: BASO # 0.1 (0.0-0.2); BASO % 0.5 % (0.0-2.0); EOS # 0.3 (0.0-0.7); EOS % 1.9 % (0-4.0); GRAN # 9.9 (1.4-6.5); GRAN % 65.5 % (42.2-75.2); HEMOGLOBIN 11.3 g/dl (12.5-16.0); LYMPH # 3.7 (1.2-3.4); LYMPH % 24.2 % (20.0-51.0); MEAN CELL VOLUME 90 fl (80.0-100.0); MEAN CORPUSCULAR HEMOGLOBIN 29 pg (27.0-31.0); MEAN CORPUSCULAR HGB CONC 32 g/dl (33.0-37.0); MEAN PLATELET VOLUME 9.4 fl (7.4-10.4); MONO # 1.1 (0.1-0.6); MONO % 7.1 % (1.7-9.3); PLATELET COUNT 521 K/mm3 (130-400); RED BLOOD COUNT 3.95 M/mm3 (4.10-5.30)
[2017-08-14 09:43] LABS: HEMATOCRIT 35.4 % (37.0-47.0)
[2017-08-14 09:48] LABS: CALCIUM 9.7 mg/dL (8.4-10.2); CREATININE, serum 0.45 mg/dL (0.52-1.25); POTASSIUM 4.4 mmol/L (3.4-5.0)
[2017-08-14 11:18] VITALS: BP 114/43; PULSE 95; TEMP 99.3
[2017-08-14 15:47] VITALS: BP 131/67; PULSE 98; TEMP 100.2
[2017-08-14 19:36] VITALS: BP 98/67; PULSE 99; TEMP 99.5
[2017-08-15 05:03] VITALS: BP 106/49; PULSE 91; TEMP 98
[2017-08-15 07:19] VITALS: BP 137/77; PULSE 85; TEMP 98.4
[2017-08-15 08:58] LABS: BASO # 0.1 (0.0-0.2); BASO % 0.4 % (0.0-2.0); EOS # 0.2 (0.0-0.7); EOS % 1.4 % (0-4.0); GRAN # 9.7 (1.4-6.5); HEMOGLOBIN 10.8 g/dl (12.5-16.0); LYMPH % 21.5 % (20.0-51.0); MEAN CELL VOLUME 91 fl (80.0-100.0); MEAN CORPUSCULAR HEMOGLOBIN 29 pg (27.0-31.0); MEAN CORPUSCULAR HGB CONC 32 g/dl (33.0-37.0); MEAN PLATELET VOLUME 9.3 fl (7.4-10.4); PLATELET COUNT 478 K/mm3 (130-400); RED BLOOD COUNT 3.75 M/mm3 (4.10-5.30)
[2017-08-15 09:05] LABS: CALCIUM 9.3 mg/dL (8.4-10.2); CREATININE, serum 0.43 mg/dL (0.52-1.25); POTASSIUM 3.9 mmol/L (3.4-5.0)
[2017-08-15 11:49] VITALS: BP 142/83; PULSE 100; TEMP 98.9
[2017-08-15 15:50] VITALS: BP 112/74; PULSE 93; TEMP 99.5
[2017-08-15 19:28] VITALS: BP 116/56; PULSE 91; TEMP 98.3
[2017-08-15 23:32] VITALS: BP 120/60; PULSE 90; TEMP 98.1
[2017-08-16 04:26] VITALS: BP 127/74; PULSE 97; TEMP 98.2
[2017-08-16 07:44] VITALS: BP 128/62; PULSE 87; TEMP 98.4
[2017-08-16 11:16] VITALS: BP 131/57; PULSE 80; TEMP 98.3
[2017-08-16] MEDS ORDERED: MAXIPIME2 GM IJ (12:08)
[2017-08-16 16:03] VITALS: BP 143/72; PULSE 92; TEMP 99
== END 2017-08-16 19:00 | disposition home or self-care (01) | DRG 475 ==
LOC: SURG 11:56 → INPTSU 11:56 → SURG 11:57
PROVIDERS: Orthopaedic Surgery; Physician Assistant
PROC: 0Y6N0Z9 Detachment at Left Foot, Partial 1st Ray, Open Approach (ICD-10-PCS; principal; 2017-08-13 08:00)
DX: T87.44 Infection of amputation stump, left lower extremity (principal); L03.116 Cellulitis of left lower limb; L97.411 Non-pressure chronic ulcer of right heel and midfoot limited to breakdown of skin; T87.81 Dehiscence of amputation stump; B95.61 Methicillin susceptible Staphylococcus aureus infection as the cause of diseases classified elsewhere; I70.244 Atherosclerosis of native arteries of left leg with ulceration of heel and midfoot; B96.5 Pseudomonas (aeruginosa) (mallei) (pseudomallei) as the cause of diseases classified elsewhere; E11.42 Type 2 diabetes mellitus with diabetic polyneuropathy; I10 Essential (primary) hypertension; Z89.412 Acquired absence of left great toe; Z87.891 Personal history of nicotine dependence; E11.621 Type 2 diabetes mellitus with foot ulcer
CPT/HCPCS: 99222-AI; 99231-AI; 99232-AI; C1751; J0692; J1650; J1815; J2250; J2270; J2405; J2704; J3010; J3370; J7030; J7050

== ENCOUNTER 2017-09-30 14:00 | Outpatient (RCR) | payer MEDICARE, OTHER ==
[2017-08-17 07:00] VITALS: BP 114/67; PULSE 101; TEMP 98.5
[2017-08-17 17:30] VITALS: BP 128/76; PULSE 97; TEMP 98.9
[2017-08-18 07:11] VITALS: BP 144/62; PULSE 104; TEMP 97.9
[2017-08-18 17:46] VITALS: BP 140/64; PULSE 98; TEMP 97.4
[2017-08-19 07:10] VITALS: BP 129/64; PULSE 99; TEMP 98.7
[2017-08-19 17:56] VITALS: BP 121/69; PULSE 78; TEMP 98.4
[2017-08-20 07:15] VITALS: BP 137/76; PULSE 102; TEMP 97.7
[2017-08-21 07:23] VITALS: BP 124/68; PULSE 94; TEMP 98.3
[2017-08-22 07:30] VITALS: BP 133/65; PULSE 97; TEMP 97.7
[2017-08-22 07:55] LABS: MEAN CELL VOLUME 90 fl (80.0-100.0); MEAN CORPUSCULAR HGB CONC 32 g/dl (33.0-37.0); MEAN PLATELET VOLUME 8.6 fl (7.4-10.4); PLATELET COUNT 321 K/mm3 (130-400); REDCELL DISTRIBUTION WIDTH-CV 13.7 % (11.5-14.5)
[2017-08-22 07:58] LABS: HEMATOCRIT 25.1 % (37.0-47.0); MEAN CORPUSCULAR HEMOGLOBIN 29 pg (27.0-31.0)
[2017-08-22 08:09] LABS: ALBUMIN 2.2 gm/dL (3.5-5.0); BILIRUBIN,TOTAL 1.3 mg/dL (0.0-1.0); C-REACTIVE PROTEIN 0.8 mg/dL (0.0-0.9); CALCIUM 6.1 mg/dL (8.4-10.2); CREATININE, serum 0.24 mg/dL (0.52-1.25)
[2017-08-22 08:15] LABS: POTASSIUM 2.7 mmol/L (3.4-5.0)
[2017-08-22 08:22] LABS: ERYTHROCYTE SEDIMENTATION RATE 63 mm/hr (0-30)
[2017-08-22 17:40] VITALS: BP 127/71; PULSE 87; TEMP 98.2
[2017-08-23 07:13] VITALS: BP 142/62; PULSE 94; TEMP 98.5
[2017-08-23 17:56] VITALS: BP 149/69; PULSE 84; TEMP 98.9
[2017-08-24 08:02] VITALS: BP 138/76; PULSE 107; TEMP 98.8
[2017-08-24 17:17] VITALS: BP 118/63; PULSE 104; TEMP 98.4
[2017-08-25 07:13] VITALS: BP 123/65; PULSE 90; TEMP 98.4
[2017-08-25 17:50] VITALS: BP 114/68; PULSE 98; TEMP 99
[2017-08-26 07:17] VITALS: BP 107/65; PULSE 101; TEMP 98.7
[2017-08-26 17:24] VITALS: BP 110/65; PULSE 100; TEMP 98.7
[2017-08-27 08:31] VITALS: BP 111/59; PULSE 95; TEMP 98.4
[2017-08-28 08:26] VITALS: BP 90/48; PULSE 91; TEMP 98.5
[2017-08-29 07:30] LABS: HEMATOCRIT 34.7 % (37.0-47.0); HEMOGLOBIN 10.8 g/dl (12.5-16.0); MEAN CELL VOLUME 90 fl (80.0-100.0); MEAN CORPUSCULAR HEMOGLOBIN 28 pg (27.0-31.0); MEAN CORPUSCULAR HGB CONC 31 g/dl (33.0-37.0); MEAN PLATELET VOLUME 10.7 fl (7.4-10.4); PLATELET COUNT 309 K/mm3 (130-400); RED BLOOD COUNT 3.87 M/mm3 (4.10-5.30); REDCELL DISTRIBUTION WIDTH-CV 14.3 % (11.5-14.5)
[2017-08-29 07:44] LABS: ALBUMIN 3.7 gm/dL (3.5-5.0); BILIRUBIN,TOTAL 0.4 mg/dL (0.0-1.0); CALCIUM 9.4 mg/dL (8.4-10.2); CREATININE, serum 0.52 mg/dL (0.52-1.25); POTASSIUM 4.8 mmol/L (3.4-5.0); TOTAL PROTEIN 8.2 gm/dL (6.4-8.2)
[2017-08-29 07:45] VITALS: BP 111/61; PULSE 90; TEMP 98.3
[2017-08-29 07:51] LABS: C-REACTIVE PROTEIN 0.7 mg/dL (0.0-0.9)
[2017-08-29 07:52] LABS: ERYTHROCYTE SEDIMENTATION RATE 38 mm/hr (0-30)
[2017-08-29 17:26] VITALS: BP 139/71; PULSE 91; TEMP 98
[2017-08-30 07:45] VITALS: BP 141/70; PULSE 91; TEMP 98.3
[2017-08-30 17:10] VITALS: BP 152/74; PULSE 88; TEMP 98
[2017-08-31 08:07] VITALS: BP 130/66; PULSE 88; TEMP 98.5
[2017-08-31 17:38] VITALS: BP 113/61; PULSE 96; TEMP 99
[2017-09-01 07:10] VITALS: BP 121/68; PULSE 88; TEMP 98.8
[2017-09-01 17:51] VITALS: BP 119/72; PULSE 82; TEMP 98
[2017-09-02 08:16] VITALS: BP 122/60; PULSE 91; TEMP 98.7
[2017-09-02 17:07] VITALS: BP 115/62; PULSE 97; TEMP 98
[2017-09-03 07:14] VITALS: BP 132/48; PULSE 94; TEMP 98.2
[2017-09-04 07:15] VITALS: BP 131/66; PULSE 95; TEMP 97.8
[2017-09-05 07:04] VITALS: BP 122/63; PULSE 93; TEMP 98.3
[2017-09-05 07:48] LABS: HEMOGLOBIN 11.2 g/dl (12.5-16.0); MEAN CELL VOLUME 89 fl (80.0-100.0); MEAN CORPUSCULAR HEMOGLOBIN 29 pg (27.0-31.0); MEAN CORPUSCULAR HGB CONC 33 g/dl (33.0-37.0); MEAN PLATELET VOLUME 11.5 fl (7.4-10.4); PLATELET COUNT 158 K/mm3 (130-400); RED BLOOD COUNT 3.86 M/mm3 (4.10-5.30); REDCELL DISTRIBUTION WIDTH-CV 14.5 % (11.5-14.5)
[2017-09-05 07:50] LABS: HEMATOCRIT 34.3 % (37.0-47.0)
[2017-09-05 08:15] LABS: ERYTHROCYTE SEDIMENTATION RATE 25 mm/hr (0-30)
[2017-09-05 08:19] LABS: ALBUMIN 3.5 gm/dL (3.5-5.0); BILIRUBIN,TOTAL 0.4 mg/dL (0.0-1.0); C-REACTIVE PROTEIN 0.7 mg/dL (0.0-0.9); CALCIUM 9.3 mg/dL (8.4-10.2); CREATININE, serum 0.43 mg/dL (0.52-1.25); POTASSIUM 4.5 mmol/L (3.4-5.0); TOTAL PROTEIN 7.5 gm/dL (6.4-8.2)
[2017-09-05 17:35] VITALS: BP 122/73; PULSE 95; TEMP 98.2
[2017-09-06 07:05] VITALS: BP 117/69; PULSE 62; TEMP 98.6
[2017-09-06 17:55] VITALS: BP 112/64; PULSE 97; TEMP 98.5
[2017-09-07 07:31] VITALS: BP 107/60; PULSE 96; TEMP 98.4
[2017-09-07 17:38] VITALS: BP 109/67; PULSE 94; TEMP 99.3
[2017-09-08 07:16] VITALS: BP 130/66; PULSE 83; TEMP 98
[2017-09-08 17:11] VITALS: BP 132/68; PULSE 78; TEMP 98
[2017-09-09 07:08] VITALS: BP 122/69; PULSE 90; TEMP 98.5
[2017-09-09 18:20] VITALS: BP 130/65; PULSE 86; TEMP 98.5
[2017-09-10 07:23] VITALS: BP 123/54; PULSE 94; TEMP 98.3
[2017-09-10 17:21] VITALS: BP 111/58; PULSE 91; TEMP 98.3
[2017-09-11 07:27] VITALS: BP 112/58; PULSE 86; TEMP 98.3
[2017-09-12 07:34] VITALS: BP 110/60; PULSE 84; TEMP 98.3
[2017-09-12 08:26] LABS: BASO # 0.1 (0.0-0.2); BASO % 1.1 % (0.0-2.0); EOS # 0.5 (0.0-0.7); GRAN # 3.2 (1.4-6.5); LYMPH # 2.3 (1.2-3.4); LYMPH % 34.7 % (20.0-51.0); MEAN CELL VOLUME 91 fl (80.0-100.0); MEAN CORPUSCULAR HEMOGLOBIN 29 pg (27.0-31.0); MEAN CORPUSCULAR HGB CONC 32 g/dl (33.0-37.0); MEAN PLATELET VOLUME 11.2 fl (7.4-10.4); MONO # 0.5 (0.1-0.6); MONO % 7.9 % (1.7-9.3); PLATELET COUNT 205 K/mm3 (130-400); RED BLOOD COUNT 3.83 M/mm3 (4.10-5.30); REDCELL DISTRIBUTION WIDTH-CV 14.6 % (11.5-14.5)
[2017-09-12 08:28] LABS: HEMATOCRIT 34.8 % (37.0-47.0)
[2017-09-12 08:38] LABS: ALBUMIN 3.6 gm/dL (3.5-5.0); BILIRUBIN,TOTAL 0.4 mg/dL (0.0-1.0); CALCIUM 9.2 mg/dL (8.4-10.2); CREATININE, serum 0.45 mg/dL (0.52-1.25); POTASSIUM 4.8 mmol/L (3.4-5.0); TOTAL PROTEIN 7.5 gm/dL (6.4-8.2)
[2017-09-12 08:39] LABS: C-REACTIVE PROTEIN 0.5 mg/dL (0.0-0.9)
[2017-09-12 09:02] LABS: ERYTHROCYTE SEDIMENTATION RATE 18 mm/hr (0-30)
[2017-09-12 17:25] VITALS: BP 115/60; PULSE 98; TEMP 98.3
[2017-09-13 07:33] VITALS: BP 134/51; PULSE 85; TEMP 98.1
[2017-09-13 17:43] VITALS: BP 125/58; PULSE 91; TEMP 97.5
[2017-09-14 07:25] VITALS: BP 128/54; PULSE 96; TEMP 98.5
[2017-09-14 17:34] VITALS: BP 110/68; PULSE 94; TEMP 99.3
[2017-09-15 07:16] VITALS: BP 121/58; PULSE 87; TEMP 98.6
[2017-09-15 17:31] VITALS: BP 120/82; PULSE 86; TEMP 98.2
[2017-09-16 07:12] VITALS: BP 119/46; PULSE 94; TEMP 98.2
[2017-09-16 17:03] VITALS: BP 134/91; PULSE 77; TEMP 98
[2017-09-17 07:20] VITALS: BP 134/64; PULSE 96; TEMP 98.7
[2017-09-18 07:30] VITALS: BP 125/65; PULSE 86; TEMP 98.3
[2017-09-19 07:24] LABS: HEMOGLOBIN 11.2 g/dl (12.5-16.0); MEAN CELL VOLUME 90 fl (80.0-100.0); MEAN CORPUSCULAR HEMOGLOBIN 29 pg (27.0-31.0); MEAN CORPUSCULAR HGB CONC 32 g/dl (33.0-37.0); MEAN PLATELET VOLUME 11.4 fl (7.4-10.4); PLATELET COUNT 160 K/mm3 (130-400); RED BLOOD COUNT 3.88 M/mm3 (4.10-5.30); REDCELL DISTRIBUTION WIDTH-CV 14.6 % (11.5-14.5)
[2017-09-19 07:26] LABS: HEMATOCRIT 34.8 % (37.0-47.0)
[2017-09-19 07:35] LABS: ALBUMIN 3.7 gm/dL (3.5-5.0); BILIRUBIN,TOTAL 0.6 mg/dL (0.0-1.0); C-REACTIVE PROTEIN 0.8 mg/dL (0.0-0.9); CALCIUM 9.2 mg/dL (8.4-10.2); CREATININE, serum 0.39 mg/dL (0.52-1.25); POTASSIUM 4.8 mmol/L (3.4-5.0); TOTAL PROTEIN 7.3 gm/dL (6.4-8.2)
[2017-09-19 08:01] LABS: ERYTHROCYTE SEDIMENTATION RATE 18 mm/hr (0-30)
[2017-09-19 17:42] VITALS: BP 140/68; PULSE 88; TEMP 98
[2017-09-20 07:00] VITALS: BP 136/74; PULSE 85; TEMP 98.1
[2017-09-20 17:39] VITALS: BP 118/60; PULSE 93; TEMP 98.4
[2017-09-21 07:21] VITALS: BP 130/62; PULSE 92; TEMP 97.8
[2017-09-22 07:15] VITALS: BP 132/75; PULSE 100; TEMP 98.3
[2017-09-22 17:40] VITALS: BP 125/60; PULSE 94; TEMP 98.3
[2017-09-23 07:16] VITALS: BP 117/59; PULSE 88; TEMP 98.2
[2017-09-23 18:07] VITALS: BP 110/73; PULSE 102
[2017-09-24 08:14] VITALS: BP 116/55; PULSE 82; TEMP 98
[2017-09-25 08:07] VITALS: BP 129/71; PULSE 78; TEMP 98.3
[2017-09-26 07:30] LABS: BASO # 0.1 (0.0-0.2); BASO % 0.9 % (0.0-2.0); EOS # 0.5 (0.0-0.7); EOS % 7.1 % (0-4.0); GRAN # 3.1 (1.4-6.5); GRAN % 48.6 % (42.2-75.2); LYMPH # 2.2 (1.2-3.4); LYMPH % 34.2 % (20.0-51.0); MEAN CELL VOLUME 92 fl (80.0-100.0); MEAN CORPUSCULAR HEMOGLOBIN 29 pg (27.0-31.0); MEAN CORPUSCULAR HGB CONC 32 g/dl (33.0-37.0); MONO # 0.6 (0.1-0.6); MONO % 8.9 % (1.7-9.3); PLATELET COUNT 202 K/mm3 (130-400); REDCELL DISTRIBUTION WIDTH-CV 14.7 % (11.5-14.5)
[2017-09-26 07:33] VITALS: BP 113/63; PULSE 87; TEMP 98.3
[2017-09-26 07:34] LABS: HEMATOCRIT 34.9 % (37.0-47.0)
[2017-09-26 07:42] LABS: ALBUMIN 3.7 gm/dL (3.5-5.0); BILIRUBIN,TOTAL 0.4 mg/dL (0.0-1.0); C-REACTIVE PROTEIN 0.6 mg/dL (0.0-0.9); CALCIUM 9.1 mg/dL (8.4-10.2); CREATININE, serum 0.47 mg/dL (0.52-1.25); POTASSIUM 4.5 mmol/L (3.4-5.0); TOTAL PROTEIN 6.9 gm/dL (6.4-8.2)
[2017-09-26 07:55] LABS: ERYTHROCYTE SEDIMENTATION RATE 13 mm/hr (0-30)
[2017-09-26 16:38] VITALS: BP 126/61; PULSE 88; TEMP 97.7
[2017-09-27 07:17] VITALS: BP 119/64; PULSE 84; TEMP 98.6
[2017-09-28 07:23] VITALS: BP 117/60; PULSE 85; TEMP 98.1
[2017-09-28 17:35] VITALS: BP 112/58; PULSE 98; TEMP 98.4
[~2017-09-30] VITALS: Ht 162.6 cm; Wt 90.8 kg
[~2017-09-30 14:00] MED LIST changes: +MAXIPIME2 GM IJ
[2017-09-30 14:23] VITALS: BP 122/74; PULSE 95; TEMP 98.9
== END 2017-09-30 14:24 | disposition home or self-care (01) ==
LOC: EUO 14:00
PROVIDERS: Internal Medicine Infectious Disease
DX: Z45.2 Encounter for adjustment and management of vascular access device (principal); Z79.899 Other long term (current) drug therapy; Z95.828 Presence of other vascular implants and grafts
CPT/HCPCS: J0692; J1644; J2997

== ENCOUNTER 2019-09-17 07:10 | Day surgery (SDC) | payer MEDICARE, OTHER ==
[~2019-09-17] VITALS: Ht 162.6 cm; Wt 118.4 kg
[2019-09-17] VITALS (12 sets, daily range): BP systolic 90–133; BP diastolic 27–76; PULSE 55–103; TEMP 97–98.3
[2019-09-17] MEDS ORDERED: GLUCOPHAGE XR500 M1 PO (07:37)
[2019-09-17] MEDS ORDERED: ZOCOR 10MG10 MG PO (07:37)
[2019-09-17] MEDS ORDERED: BACTRIM DS 8001 TAB PO (07:37)
[2019-09-17] MEDS ORDERED: PLAVIX 75MG TAB75 MG PO (07:38)
[2019-09-17] MEDS ORDERED: CYMBALTA 60MG60 MG PO (07:38)
[2019-09-17] MEDS ORDERED: TRESIBA FL200 UNIT/1 SQ (07:39)
[2019-09-17] MEDS ORDERED: ASPIRIN 81M81 MG/TA2 PO (07:39)
[2019-09-17] MEDS ORDERED: PRINIVIL10 MG PO (07:40)
--- NOTE | 2019-09-17 08:19 | NUR ---
Patient took her metformin (1000 mg) and tresiba (60 units) injection this AM. She reports her BG at home was 120s at around 0600. Her BG on admission was 85. This is reported to Robles Rolon CRNA and orders for D51/2NS IVF at 100mL/hr and to re-check BG prior to OR are received.
--- NOTE | 2019-09-17 11:47 | NUR ---
PT TO ROOM 328 PER BED @1130 WITH REPORT FROM [facility] PACU. PT IS A/O X3 DROWSEY WILL AROUSSE TO VERBAL. LUNGS CLEAR, SCD TO NON SURGICAL LE. JOSEPH WRAP OVER BULKY DRESSING. IV TO PUMP, DRESSING CDI ELEVATED ON PILLOWS.
--- NOTE | 2019-09-17 14:23 | NUR ---
PT UP TO BR VOIDED AND RETURNED TO BED.
--- NOTE | 2019-09-17 14:53 | NUR ---
ENZO met with the patient and the patient's , Enedina to complete initial intake. The patient lives with Enedina near [place]. The patient has a walker and a cane. The patient is independent with ADLs. The patient's PCP is Dr. Kurt Youssef and receives medications from [facility] with no difficulties. The patient does not have advanced directives in the EMR but was interested in DPOA-HC form. Form provided. The patient plans to return home at discharge. There are no additional needs at this time.
--- NOTE | 2019-09-18 03:42 | NUR ---
Patient has rested well throughout the night. Patient up to the bathroom with one assist with walker. Orders state patient is to be non-weight bearing to left foot. After attempting to educate patient on this, she states that Dr. Wallace told her she can put weight on it. Denies pain, but states she has some discomfort. Jorje wrap covering dressing to left foot. No drainage noted. IVF continue d/t some hypotension. Patient utilizes call light effectively. Urine output is adequate. Will continue to monitor.
[2019-09-18 04:33] VITALS: BP 99/50; PULSE 83; TEMP 98.2
[2019-09-18] MEDS ORDERED: NORCO 325 MG-51 TAB PO (06:36)
[2019-09-18 07:48] VITALS: BP 96/50; PULSE 82; TEMP 97.9
--- NOTE | 2019-09-18 08:00 | NUR ---
PATIENT IS ORIENTED BUT A LITTLE DROWSY THIS AM. NOTED LOWER B/P IN THE 90'S SYSTOLIC. HELD AM LISINOPRIL. ALL OTHER VSS. RATES PAIN IN LLE AT 5-6 ON PAIN SCALE. GAVE PRN IV DILAUDID. LLE DRESSING IS CD&I WITH SPLINT AND ACEWRAP. PATIENT IS TDWB HEEL, OTHERWISE NWB TO LLE. PATIENT IS USING WALKER WITH TRANSFERS. HEAD TO TOE ASSESSMENT COMPLETE. BREAKFAST TRAY AT BEDSIDE. AM BS WAS 67. NO OTHER NEEDS AT THIS TIME. CALL LIGHT IN REACH.
--- NOTE | 2019-09-18 10:15 | NUR ---
PT worked with the patient and was recommending [facility] for strengthening. SW met with the patient and presented Medicare.gov's list of nude model in the [facility]. The patient states she is not interested but will look over the list and inform SW if she changes her mind.
[2019-09-18 12:05] VITALS: BP 104/52; PULSE 81; TEMP 98.3
--- NOTE | 2019-09-18 14:40 | NUR ---
PATIENT DISCHARGING HOME VIA WC TO PERSONAL VEHICLE WITH . GAVE DISCHARGE INSTRUCTIONS, PRESCRIPTION, DRESSING SUPPLIES & F/U APT. ANSWERED ALL QUESTIONS/CONCERNS. DC'D LEFT FORARM IV, COVERED SITE WITH GAUZE & COBAN. PATIENT DRESSED AND PERSONAL BELONGINGS PACKED BY . PATIENT DISCHARGED.
== END 2019-09-18 14:45 | disposition home or self-care (01) ==
LOC: SDCO 07:10 → JCC 11:30 → SDCO 09-18 14:45
DX: I96 Gangrene, not elsewhere classified (principal); I10 Essential (primary) hypertension; M06.9 Rheumatoid arthritis, unspecified; E11.42 Type 2 diabetes mellitus with diabetic polyneuropathy; F32.9 Major depressive disorder, single episode, unspecified; E11.10 Type 2 diabetes mellitus with ketoacidosis without coma; I25.2 Old myocardial infarction; Z79.02 Long term (current) use of antithrombotics/antiplatelets; Z90.49 Acquired absence of other specified parts of digestive tract; Z87.891 Personal history of nicotine dependence
CPT/HCPCS: OP; J0690; J1650; J1815; J2250; J2405; J2704; J3010; J7030

== ENCOUNTER 2019-10-30 11:44 | Inpatient (IN) | payer MEDICARE, OTHER ==
[~2019-10-30] VITALS: Ht 162.6 cm; Wt 111.7 kg
[~2019-10-30 11:44] MED LIST changes: +ASPIRIN 81M81 MG/TA2 PO; +BACTRIM DS 8001 TAB PO; +CYMBALTA 60MG60 MG PO; +GLUCOPHAGE XR500 M1 PO; +NORCO 325 MG-51 TAB PO; +PLAVIX 75MG TAB75 MG PO; +TRESIBA FL200 UNIT/1 SQ
[2019-11-02] VITALS (213 sets, daily range): BP systolic 83–143; BP diastolic 48–109; PULSE 79–114; TEMP 97.4–99.2; O2SAT 47–100
--- NOTE | 2019-11-02 09:27 | NUR ---
The patient's blood pressure was rechecked at this time with a result of 105/62.
--- NOTE | 2019-11-02 09:50 | NUR ---
The patient was brought back via wheelchair to [place] at this time. The patient transferred herself independently from the wheelchair to the cart in her room and appeared to tolerate the activity well. Vital signs obtained. Consent signed. 18G IV started in right hand with one stick, NS infusing without difficutly. Blood obtained from IV start to check blood sugar with a result of 295. Anesthesia was notified and an order for insulin was obtained with a recheck of the blood sugar 30 minutes after the injection. Heart Reg. Lungs clear. Bowel sounds audible. The patient has a kerlix dressing to her left foot that has some drainage present but is otherwise intact. Call light is within reach. Will continue to monitor the patient.
--- NOTE | 2019-11-02 10:20 | NUR ---
The patient's blood sugar was rechecked with a result of 318. Víctor, VICE PRESIDENT PAYER was notified and has no further orders at this time. The patient was taken via cart to the recovery room to have a nerve block placed prior to surgery. The patient's belongings were taken over to the recovery room and will be transferred up with the patient to the 3rd floor post operatively.
--- NOTE | 2019-11-02 15:00 | NUR ---
Dr Avendano notified of consult.
--- NOTE | 2019-11-02 15:27 | NUR ---
Dr Gallego notified of consult.
--- NOTE | 2019-11-02 15:33 | NUR ---
Patient transferred from PACU to room 348 at 1510. Patient drowsy, arouses to verbal stimuli. Hypotensive 81/49 P93. At 1512 BP 80/46 P94. 1515 75/39, P94. BG 260. Orders received per Dr Avendano to tranfer to ICU. ICU nurse given report per PACU nurse. Patient tranferred to ICU at this time. BP 72/48, P91. Oxygen remained 96-98 on 2l/nc throughout.
[2019-11-02 15:50] LABS: ARTERIAL BLD GAS O2 SATURATION 98.4 % (92-100); ARTERIAL BLD GAS TCO2 CT 18.2; ARTERIAL BLOOD GAS BASE EXCESS -9.4 (-2-2); ARTERIAL BLOOD GAS PCO2 39.3 mmHg (35-45); ARTERIAL BLOOD GAS pH 7.25 (7.35-7.45)
[2019-11-02 15:51] LABS: ARTERIAL BLOOD GAS PO2 138.3 mmHg (80-100)
--- NOTE | 2019-11-02 16:23 | NUR ---
Dr Wallace notified of patient transfer to ICU.
[2019-11-02 16:31] LABS: BASO # 0.1 (0.0-0.2); BASO % 0.8 % (0.0-2.0); EOS # 0.3 (0.0-0.7); EOS % 2.7 % (0-4.0); GRAN # 5.6 (1.4-6.5); GRAN % 55.9 % (42.2-75.2); LYMPH # 2.9 (1.2-3.4); LYMPH % 29.2 % (20.0-51.0); MEAN CELL VOLUME 96 fl (80.0-100.0); MEAN CORPUSCULAR HGB CONC 31 g/dl (33.0-37.0); MEAN PLATELET VOLUME 9.6 fl (7.4-10.4); MONO # 1.1 (0.1-0.6); MONO % 10.4 % (1.7-9.3); PLATELET COUNT 331 K/mm3 (130-400); RED BLOOD COUNT 2.23 M/mm3 (4.10-5.30); REDCELL DISTRIBUTION WIDTH-CV 13.7 % (11.5-14.5)
[2019-11-02 16:47] LABS: HEMATOCRIT 21.4 % (37.0-47.0); HEMOGLOBIN 6.6 g/dl (12.5-16.0); MEAN CORPUSCULAR HEMOGLOBIN 30 pg (27.0-31.0)
[2019-11-02 16:59] LABS: ALBUMIN 2.6 gm/dL (3.5-5.0); BILIRUBIN,TOTAL 0.1 mg/dL (0.0-1.0); CALCIUM 7.8 mg/dL (8.4-10.2); CREATININE, serum 1.18 (0.52-1.25); POTASSIUM 4.3 mmol/L (3.4-5.0); TOTAL PROTEIN 5.6 gm/dL (6.4-8.2)
--- NOTE | 2019-11-02 20:06 | NUR ---
PT RESTING IN BED, REPOSTIONED WITH RN ASSISTANCE. DENIES PAIN SOB, OR DISCOMFORT. VERY PLEASANT DISPOSITION. IVF AND RAMIREZ REMAINS IN PLACE. PT REMAIN ON 2L NC WITH PRODUCTIVE COUGH, PALE YELLOW MUCUS. RT AT BESIDE FOR TX. HR -110'S, ST, OTHER VSS AT THIS TIME. WILL CONTINUE TO MONITOR PT STATUS AND UP[DATE PROVIDERS NEEDED.
[2019-11-02 23:09] LABS: MUCOUS Present /lpf; PH 5 (5-8); SQUAMOUS EPITHELIAL 0-2 /hpf; URINE APPEARANCE Hazy; URINE BACTERIA None Seen /hpf; URINE BILIRUBIN Negative (NEGATIVE); URINE BLOOD Negative (NEGATIVE); URINE COLOR Yellow; URINE GLUCOSE 3+ (NEGATIVE); URINE KETONE Negative (NEGATIVE); URINE LEUKOCYTE ESTERASE Negative (NEGATIVE); URINE NITRATE Negative (NEGATIVE); URINE PROTEIN(semi-quant) Negative (NEGATIVE); URINE RBC 0-2 /hpf; URINE UROBILINOGEN Negative (NEGATIVE); URINE WBC 0-2 /hpf
[2019-11-02 23:28] LABS: COLLECTION METHOD CATHETER
[2019-11-03] VITALS (345 sets, daily range): BP systolic 105–137; BP diastolic 50–86; PULSE 89–96; TEMP 97–100.2; O2SAT 72–100
--- NOTE | 2019-11-03 01:34 | NUR ---
PT RESTING IN BED, REMAINS ON LEVO. DENIES ANY SOB ON RA. RAMIREZ PLACE FOR URINARY RETENTION. PAIN MANAGEMENT ON BOARD. WILL CONTINUE TO MONITOR PT STATUS AND UPDATE PROVIDERS NEEDED.
[2019-11-03 01:48] LABS: MEAN CELL VOLUME 93 fl (80.0-100.0); MEAN CORPUSCULAR HGB CONC 31 g/dl (33.0-37.0); MEAN PLATELET VOLUME 9.7 fl (7.4-10.4); PLATELET COUNT 350 K/mm3 (130-400); RED BLOOD COUNT 2.83 M/mm3 (4.10-5.30); REDCELL DISTRIBUTION WIDTH-CV 13.9 % (11.5-14.5)
[2019-11-03 01:49] LABS: HEMATOCRIT 26.2 % (37.0-47.0); MEAN CORPUSCULAR HEMOGLOBIN 28 pg (27.0-31.0)
--- NOTE | 2019-11-03 04:43 | NUR ---
UPON REASSESSMENT OF PAIN, PT NOTED PAIN 8/10, PT THE QUICKLY FELL BACK ASLEEP, APPEARING COMFORTABLE, VSS. WILL CONTINUE TO MONITOR.
--- NOTE | 2019-11-03 05:52 | NUR ---
LEVO PLACED ON STBY @ 2578
[2019-11-03 06:37] LABS: BASO # 0.1 (0.0-0.2); BASO % 0.5 % (0.0-2.0); EOS # 0.2 (0.0-0.7); EOS % 1.7 % (0-4.0); GRAN # 8.5 (1.4-6.5); GRAN % 68.5 % (42.2-75.2); LYMPH # 2.4 (1.2-3.4); LYMPH % 19.1 % (20.0-51.0); MEAN CELL VOLUME 93 fl (80.0-100.0); MEAN CORPUSCULAR HGB CONC 31 g/dl (33.0-37.0); MEAN PLATELET VOLUME 9.9 fl (7.4-10.4); MONO # 1.2 (0.1-0.6); MONO % 9.3 % (1.7-9.3); PLATELET COUNT 349 K/mm3 (130-400); REDCELL DISTRIBUTION WIDTH-CV 14.3 % (11.5-14.5)
[2019-11-03 07:17] LABS: CALCIUM 8.1 mg/dL (8.4-10.2); CREATININE, serum 0.75 (0.52-1.25); POTASSIUM 4.4 mmol/L (3.4-5.0)
[2019-11-03 07:18] LABS: HEMATOCRIT 25.1 % (37.0-47.0); HEMOGLOBIN 7.7 g/dl (12.5-16.0); MEAN CORPUSCULAR HEMOGLOBIN 29 pg (27.0-31.0)
--- NOTE | 2019-11-03 12:45 | NUR ---
Plan: Client is wanting to go to a SNF. Assessment: Client reports that she is wanting to talk to her spouse and her children about where she goes to placement. Client reports her children would like her in [place]. Client reports that she resides [place]. is En[place] . Client reports that she has a son and DTR about of her care. Patient report PCP is Dr. Youssef. and gets medications from [facility]. Client reports that she prior to surgery was using a cane to help get around. Patient reports that she would like to think about her options for Skilled. Action: SW will provide Medicare.gov sheet and send referral for diabetic supervisor hide house. Left note for staff to follow-up.
--- NOTE | 2019-11-03 13:42 | NUR ---
REPORT GIVEN TO JUN SIMON ON SURGICAL FLOOR. PATIENT TRANSFERRED UP TO ROOM 342.
--- NOTE | 2019-11-03 13:45 | NUR ---
Patient up to room 342 by bed. Alert and oriented x 3. Assessment complete. Brace and acewrap to LLE. Gould to dependent drainage with clear yellow urine in bag. Central line to right IJ. Denies pain at this time. Denies further needs at this time.
--- NOTE | 2019-11-03 14:40 | NUR ---
In bed resting, arouses to voice, spouse at bedside. Denies further needs at this time.
--- NOTE | 2019-11-03 18:36 | NUR ---
Patient has done well this afternoon. Gould maintained to dependent drainage. Requested pain medications for LLE pain 10/28, medications given per orders. Spouse at bedside. Denies further needs at this time. Will report off to shiftman.
--- NOTE | 2019-11-03 22:28 | NUR ---
PT CALLED, POINTED TO HER I.J. CENTRAL LINE. PT HAD PULLED THE LINE COMPLETELY OUT. SUTURES WERE CUT/REMOVED WITH NEW SUTURE REMOVAL KIT. DRESSING APPLIED THOUGH THERE WAS NO ACTIVE BLEEDING OR DRAINAGE.
[2019-11-04] VITALS (7 sets, daily range): BP systolic 97–123; BP diastolic 49–67; PULSE 90–105; TEMP 97.4–99.5
--- NOTE | 2019-11-04 05:39 | NUR ---
PT IN BED. NO N/V. NORCO FOR LLE DISCOMFORT. OTHERWISE PT SEEMED TO REST VERY WELL DURING THE NIGHT. DRESSING/JOSEPH CD&I. BRACE ON.
[2019-11-04 06:05] LABS: MEAN CELL VOLUME 92 fl (80.0-100.0); MEAN CORPUSCULAR HGB CONC 32 g/dl (33.0-37.0); PLATELET COUNT 371 K/mm3 (130-400); REDCELL DISTRIBUTION WIDTH-CV 14.3 % (11.5-14.5)
[2019-11-04 06:10] LABS: HEMATOCRIT 24.9 % (37.0-47.0); HEMOGLOBIN 7.9 g/dl (12.5-16.0); MEAN CORPUSCULAR HEMOGLOBIN 29 pg (27.0-31.0)
[2019-11-04 06:17] LABS: CALCIUM 8.5 mg/dL (8.4-10.2); CREATININE, serum 0.57 (0.52-1.25); POTASSIUM 3.8 mmol/L (3.4-5.0)
[2019-11-04 08:38] LABS: BAND 6 % (0-10); HYPOCHROMIA 1+; NEUTROPHILS 67 % (42.0-75.2); PLATELET ESTIMATE NORMAL (NORMAL)
[2019-11-04 08:39] LABS: LYMPHOCYTE 19 % (20.0-51.0)
[2019-11-04 10:08] LABS: MUCOUS Present /lpf; PH 5 (5-8); SQUAMOUS EPITHELIAL 0-2 /hpf; URINE APPEARANCE Clear; URINE BACTERIA Rare /hpf; URINE BILIRUBIN Negative (NEGATIVE); URINE BLOOD 1+ (NEGATIVE); URINE COLOR Yellow; URINE GLUCOSE 3+ (NEGATIVE); URINE KETONE Trace (NEGATIVE); URINE LEUKOCYTE ESTERASE Negative (NEGATIVE); URINE NITRATE Negative (NEGATIVE); URINE PROTEIN(semi-quant) Negative (NEGATIVE); URINE UROBILINOGEN Negative (NEGATIVE)
[2019-11-04 11:00] LABS: COLLECTION METHOD CLEAN CATCH
--- NOTE | 2019-11-04 11:03 | NUR ---
Patient resting in bed. Ortho & hospitalist saw patient this am. Patient was 3 person assisted to bedside commode, she was able to have small Bm. We did discuss her bowels & possibility of stool softner and or laxitives, she denies the need at this time. Patient was very nervous/scard with commode transfer she did need alot of encouragment. 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 Ilya hose removed from right leg. Scds on right leg. Full bed bath & bed linens change provided for patient. Int, gauze dressing & tegadern noted to previous Right I J site. Leg stump dressing clean dry intact, knee immobilizer one. Luis Fernando was Dc per order. Ua sent to lab. She tolerated breakfast without nausea. [place] one tab per request for pain. Will continue to closely monitor.
--- NOTE | 2019-11-04 12:12 | NUR ---
Patient sitting up eating lunch. Yola for pain & insulin per sliding scale. Will john.
--- NOTE | 2019-11-04 14:35 | NUR ---
SW was left a message to provider patient with [email or web address] information sheet. SW did give patient the forms, and explained process to patient. Patient left rest of information for weekday SW to follow up.
--- NOTE | 2019-11-04 15:14 | NUR ---
[facility] had a small Bm. She did move better slightly this time, but was again a heavy 3 assist with gaitbelt. Patient was extremely sweating, blood glucose checked, stable. Patient given fresh linens. SHe reports getting night sweats at times & that she was sleeping soundly. she has no other complaints at this time.
--- NOTE | 2019-11-04 17:42 | NUR ---
Patient again assisted to the commode. Small Bm. Complaints of constipation, Miralax ordered & given. Dinner & her spouse at bedside.
[2019-11-05 04:07] VITALS: BP 137/74; PULSE 98; TEMP 98.1
--- NOTE | 2019-11-05 06:06 | NUR ---
PT USING BEDPAN TONIGHT YESTERDAY, 4 PEOPLE WERE NEEDED TO GET HER ON THE COMMODE. ADI FOR LLE DISCOMFORT AT H.S.
[2019-11-05 07:12] LABS: CALCIUM 8.7 mg/dL (8.4-10.2); CREATININE, serum 0.48 (0.52-1.25)
[2019-11-05 08:17] VITALS: BP 109/77; PULSE 119; TEMP 97.8
[2019-11-05 08:40] LABS: BASO # 0.1 (0.0-0.2); BASO % 0.5 % (0.0-2.0); EOS # 0.4 (0.0-0.7); EOS % 3.4 % (0-4.0); GRAN # 8.9 (1.4-6.5); GRAN % 67.5 % (42.2-75.2); LYMPH # 2.4 (1.2-3.4); LYMPH % 18.3 % (20.0-51.0); MEAN CELL VOLUME 92 fl (80.0-100.0); MEAN CORPUSCULAR HGB CONC 32 g/dl (33.0-37.0); MEAN PLATELET VOLUME 9.8 fl (7.4-10.4); MONO # 1.2 (0.1-0.6); MONO % 9.5 % (1.7-9.3); PLATELET COUNT 401 K/mm3 (130-400); RED BLOOD COUNT 2.69 M/mm3 (4.10-5.30); REDCELL DISTRIBUTION WIDTH-CV 14.1 % (11.5-14.5)
[2019-11-05 08:41] LABS: HEMATOCRIT 24.7 % (37.0-47.0); HEMOGLOBIN 7.9 g/dl (12.5-16.0); MEAN CORPUSCULAR HEMOGLOBIN 29 pg (27.0-31.0)
--- NOTE | 2019-11-05 10:51 | NUR ---
Early Childhood Education Instructor followed up with patient who was interested in three different SNF's, one of which being [facility]. Patient's is at bedside. SW advised patient that [facility] is not accepting new referrals at this time. Patient states her first preference is [place] and second preference would be [facility] in [place]. SW also reviewed option of Inpatient Rehab and patient is open to a screening. SW contacted Jesus at [facility] and Merle at [facility] then faxed referrals. ENZO contacted Oneyda, [facility] Director to give referral. SW will continue to follow.
--- NOTE | 2019-11-05 11:35 | NUR ---
First visit from the information technology data analyst. No needs right now.
[2019-11-05 11:36] VITALS: BP 99/64; PULSE 108; TEMP 98
--- NOTE | 2019-11-05 14:54 | NUR ---
Tank Builder spoke with Oneyda, [facility] Director who advised she would be able to accept referral. ENZO followed up with patient and her , Enedina (ph#[phone]). Patient advised IPR would be her first preference and Enedina agreed. SW notified Jesus at [facility] and Merle at [facility]. ENZO will continue to follow.
[2019-11-05 15:19] VITALS: BP 99/67; PULSE 119; TEMP 97.9
--- NOTE | 2019-11-05 16:15 | NUR ---
Tdp Displays Analyst received a phone call from patient's daughter, Winnie (ph#[phone]). Winnie is in agreement with Inpatient Rehab but expressed concern about patient's home and prior level of function. Winnie states her mom was struggling with mobility and ambulating prior to surgery. Winnie also expressed concern with patient returning home in a wheelchair as her parents home is cluttered. Winnie would be interested in home health services for patient upon discharge as she is also concerned that patient is not consistently taking her medications. ENZO advised Winnie that if patient discharges to [facility], the therapy team will meet weekly to discuss progress, goals, and discharge needs. ENZO also reviewed home health services with Winnie. ENZO provided update to Oneyda [facility] Director and will continue to follow.
[2019-11-05 19:52] VITALS: BP 119/74; PULSE 106; TEMP 98.3
[2019-11-06 00:03] VITALS: BP 110/64; PULSE 111; TEMP 98.9
--- NOTE | 2019-11-06 02:15 | NUR ---
Patient sitting in bed for assessment. Patient has required on dose of 100mg Ultram for pain relief. Patient left leg in an immobilizer at this time. No complaints of nasuea.
[2019-11-06 03:36] VITALS: BP 142/79; PULSE 85; TEMP 98.3
--- NOTE | 2019-11-06 08:00 | NUR ---
PATIENT IS ORIENTED BUT DROWSY THIS AM. VSS. RATES PAIN IN RLE AT 4/10. OSHA INSPECTOR GAVE PAIN MEDS BEFORE SHIFT CHANGE. RLE DRESSING IS CD&I WITH ACEWRAP AND TECHNOL BRACE INPLACE. TEDS & SCD'S TO LLE. POSITIVE PEDAL PULSE TO LLE. HEAD TO TOE ASSESSMENT COMPLETE. AM MEDS GIVEN. BREAKFAST TRAY AT BEDSIDE. NO C/O N/V. RIGHT HAND IV TO INT. AM BS WAS 107, NO SSI REQUIRED. NO OTHER NEEDS. CALL LIGHT IN REACH.
[2019-11-06 09:00] VITALS: BP 113/81; PULSE 113; TEMP 98
[2019-11-06] MEDS ORDERED: FERROUS SU325 MG/TAB PO (10:09)
[2019-11-06] MEDS ORDERED: ULTRAM 50MG TAB50 MG PO (10:09)
[2019-11-06] MEDS ORDERED: SENOKOT S 50 MG1 TAB PO (10:10)
[2019-11-06] MEDS ORDERED: NORCO 325 MG-51 TAB PO (10:10)
--- NOTE | 2019-11-06 10:32 | NUR ---
Patient to discharge to [facility] today. SW met with patient who is in agreement with discharge plan although states she is concerned that even after a stay at [facility], she won't be ready to go straight home. SW contacted patient's daughter, Winnie and patient's , Enedina to provide update. No additional needs at this time.
--- NOTE | 2019-11-06 11:00 | NUR ---
PATIENT DISCHARGING TO [facility]. SEE DISCHARGE ORDERS.
== END 2019-11-06 11:00 | DRG 240 ==
LOC: SURG 11-02 07:30 → INPTSU 11-02 08:28 → SURG 11-02 10:30 → ICU 11-02 15:23 → SURG 11-03 13:30
PROVIDERS: Family Medicine; ADMIT Orthopaedic Surgery
PROC: 02HV33Z Insertion of Infusion Device into Superior Vena Cava, Percutaneous Approach (ICD-10-PCS; 2019-11-02)
PROC: 0Y6J0Z1 Detachment at Left Lower Leg, High, Open Approach (ICD-10-PCS; principal; 2019-11-02 10:30)
DX: E11.51 Type 2 diabetes mellitus with diabetic peripheral angiopathy without gangrene (principal); M86.672 Other chronic osteomyelitis, left ankle and foot; E87.2 Acidosis; D62 Acute posthemorrhagic anemia; E11.42 Type 2 diabetes mellitus with diabetic polyneuropathy; T87.81 Dehiscence of amputation stump; Z79.4 Long term (current) use of insulin; Z91.81 History of falling; F32.9 Major depressive disorder, single episode, unspecified; E78.00 Pure hypercholesterolemia, unspecified; Z87.891 Personal history of nicotine dependence; Z79.84 Long term (current) use of oral hypoglycemic drugs; E11.65 Type 2 diabetes mellitus with hyperglycemia; I10 Essential (primary) hypertension; I95.81 Postprocedural hypotension; Z79.82 Long term (current) use of aspirin
CPT/HCPCS: 99222; 99233-AI; A4314; J0690; J1170; J1815; J2250; J2270; J2370; J2405; J2704; J2765; J3010; J7030; L1830; P9016

== ENCOUNTER 2019-11-06 11:05 | Inpatient (IN) | payer MEDICARE, OTHER ==
[~2019-11-06] VITALS: Ht 162.6 cm; Wt 111.8 kg
[~2019-11-06 11:05] MED LIST changes: +FERROUS SU325 MG/TAB PO; +SENOKOT S 50 MG1 TAB PO
--- NOTE | 2019-11-06 13:45 | NUR ---
IP[facility] TAKING OVER PATIENT'S CARE.
[2019-11-06 14:58] VITALS: BP 97/62; PULSE 90; TEMP 98.1
[2019-11-06 18:30] VITALS: BP 82/47; PULSE 104; TEMP 97.8
--- NOTE | 2019-11-06 19:14 | NUR ---
PATIENT'S STUMP WAS UNWRAPPED AND DRESSING WAS CHANGED, ZEREFORM, 4X4 GAUZE, ABD, KERLIX, AND OJSEPH WRAP X2. PLUS IMMOBILIZER. SLIGHT DRAINAGE NOTED TO DISTAL END WITH 36 STAR, SITE LOOKS GOOD WITH NO INCREASED REDNESS OR SWELLEN. OPEN SITE IN BETWEEN 4TH AND 5TH RIGHT TOES DRESSED WITH AQUACELL AG AND BANDAID. 2X1 INCH PURPLISH NONBLANCHABLE AREA NOTED TO OUTER RIGHT HEEL. HEEL PROTECTOR ON AND HEELS FLOATING. DESENEX TO UNDER PANUS, ORDER FOR STRAIGHT CATH RECEIVED FOR UA, ZINC ORDERED FOR EXCORIATION TO BOTTOM. HEMMROIDS NOTED. CLEANED VAGINAL AREA WELL AND CALLING FOR ORDERS FOR MONOSTAT FOR INFLAMMATION AND REDNESS AND YEAST. PATIENT REQUESTED TYLENOL THIS EVENING AND IS PREPARING FOR STRAIGHT CATH AT SHIFT CHANGE.
--- NOTE | 2019-11-06 19:39 | NUR ---
Urine collected via st cath, order obtained from provider, for urinalysis/reflex culture if needed. Patient report discomfort to vaginal/labia area due to observed redness/swelling to inner labia/vaginal tissues. Urine specimen sent to lab for testing. Medicated cream applied.
--- NOTE | 2019-11-06 19:40 | NUR ---
CHANGE OF SHIFT REPORT RECEIVED FROM DAY SHIFT NURSES. BED ALARM ON.
--- NOTE | 2019-11-06 20:00 | NUR ---
DECREASED STRENGTH GENERALIZED AND DECREASED MOVEMENT LLE D/T LBKA SX/BRACE. PATIENT REPORTS FEELING TIRED WITH EXERTION. REPORTS PAIN WITH TOUCH/CONTACT TO INNER/OUTER LABIA ( OBSERVED DURING ST CATH FOR URINE SPEC) AND WITH APPLICATION OF MEDICATED OINTMENTS. DENIES CHEST PAIN/SHORTNESS OF BREATH. BED ALARM ON. LLE ELEVATED ON PILLOW, ADULT PULL UPS REMOVED TO HELP WITH KEEPING PERIAREA OPEN TO AIR, RLE ALSO ELEVATED ON PILLOW.
[2019-11-06 22:15] LABS: COLLECTION METHOD CLEAN CATCH
[2019-11-06 22:23] LABS: BUDDING YEAST Present /hpf; MUCOUS Present /lpf; PH 5 (5-8); URINE APPEARANCE Cloudy; URINE BACTERIA Moderate /hpf; URINE BILIRUBIN Negative (NEGATIVE); URINE BLOOD 1+ (NEGATIVE); URINE COLOR Yellow; URINE GLUCOSE 3+ (NEGATIVE); URINE KETONE Negative (NEGATIVE); URINE LEUKOCYTE ESTERASE 3+ (NEGATIVE); URINE NITRATE Negative (NEGATIVE); URINE PROTEIN(semi-quant) 2+ (NEGATIVE); URINE RBC 20-50 /hpf; URINE UROBILINOGEN Negative (NEGATIVE)
--- NOTE | 2019-11-06 22:40 | NUR ---
SPOKE WITH RAMON FROM LAB TO CLARIFY, URINE COLLECTED VIA ST CATH. PATIENT SLEEPING, BREATHING NONLABORED AND EVEN, DOES NOT WAKE WHEN DOOR TO ROOM IS OPENED BY STAFF. BED ALARM ON.
--- NOTE | 2019-11-07 03:06 | NUR ---
AIR MATTRESS PLACED ON BED WHILE PATIENT UP ON BSC VIA SIT/STAND LIFT.
[2019-11-07 05:51] VITALS: BP 112/67; PULSE 107; TEMP 97.8
--- NOTE | 2019-11-07 07:25 | NUR ---
CHANGE OF SHIFT REPORT GIVEN TO DAY SHIFT NURSERASHEEDA. BED ALARM ON.
--- NOTE | 2019-11-07 07:33 | NUR ---
Patient resting in bed, call light in reach and bed alarm is set patient denies any questions at this time.
--- NOTE | 2019-11-07 10:39 | NUR ---
Patient currently sleeping in bed call light in reach and bed alarm is set. Will continue to monitor.
--- NOTE | 2019-11-07 11:23 | NUR ---
Patient is working with PT at this time. She received whiteside from family. PT assisted with slide board from bed to wheelchair and required one staff assist with queing. Will continue to monitor.
--- NOTE | 2019-11-07 16:27 | NUR ---
Spouter met with patient and patient's , Enedina (ph#[phone]) to provide copy of team conference notes and to complete intake and patient is new to [facility]. Patient lives in [place] with her and sees Dr. Youssef for primary care. Patient obtains medications from [facility]. Patient will be reevaluated next week to determine date of discharge. SW spoke with patient about home set up and need to have open pathways that a wheelchair can fit through. Patient and Enedina verbalized understanding and advised that they are working on this. SW had previously received an email from patient's daughter, Winnie (ph#[phone]) that included photos of their home, which appeared to be cluttered and have limited pathways. ENZO coordinated with Enedina and Winnie to schedule family meeting for 11/14/19 @4910. SW will continue to follow.
[2019-11-07 18:33] VITALS: BP 131/65; PULSE 91; TEMP 98.4
--- NOTE | 2019-11-07 20:30 | NUR ---
DECREASED ROM/STRENGTH TO LLE D/T L BKA AND BRACE TO LLE. DENIES INCREASED NUMBNESS/TINGLING TO EXTREMITIES. DENIES CHEST PAIN/SHORTNESS OF BREATHING. BED ALARM ON WHEN IN BED.
--- NOTE | 2019-11-07 20:36 | NUR ---
22 Gauge IV was placed to right AC with one attempt and first dose of antibiotic was given of Rocephin for UTI. Patient tolerating well. Patient was started on Diflucan due to yeast infection. Order placed for witch kristopher pad to help with enlarged hemerroids. Patient attended all therapies today and tolerated with prn pain meds. Patient was a two person assist with sit to stand lift this shift. She was independent with her meals. She was continent this afternoon, but does wear a brief. Patient currently resting in bed, call light in reach and bed alarm is set.
[2019-11-08 04:55] VITALS: BP 127/61; PULSE 90; TEMP 98.1
--- NOTE | 2019-11-08 07:01 | NUR ---
CHANGE OF SHIFT REPORT GIVEN TO DAY SHIFT NURSEKIMBERLEE. BED ALARM ON.
--- NOTE | 2019-11-08 10:00 | NUR ---
Assessment completed, alert/oriented, vital signs stable, reports some moderate discomfort to left leg/ stump, Grace was given and has givne some releif, heart RRR/ distal pulse palpable, lungs CTA/ no resp.difficulty noted, patient has some excortition to perineal area and using antifungal ointment as ordered, will changed dressing to LLE stump today after her therapies are finished for the day, her right heel is soft and tender/ and has some redness between toes/ Surgical consutl made and has been by and just recommended keeping heel elevated and keeping toes clean and dry with NO surgical intervention needs at this time, patient up in chair at this time wating for her next PT session
[2019-11-08 17:53] VITALS: BP 102/75; PULSE 59; TEMP 98
--- NOTE | 2019-11-08 21:30 | NUR ---
LLE STUMP DRSG CHANGE COMPLETED. SUTURE LINE WELL APPROXIMATED WITH STAR INTACT. MINIMUM SEROUS DRG NOTED. SOME AREAS OF THE INCISION HAS SL INFLAMMATION BUT APPEARS TO BE HEALING WELL. VASELINE GAUZE, 4X4'S, ABD DRSG, JOSEPH WRAP REAPPLIED TO LT STUMP. IMMOBILIZER BACK ON PER PT REQUEST. SKIN CARE TO PANUS AND GROIN D/T YEAST. DESENEX APPLIED TO THESES AREAS. MONOSTAT VAGINAL CREAM INSERTED. PT ALSO HAS EXTERNAL HEMORRHOIDS.
--- NOTE | 2019-11-09 03:45 | NUR ---
ASSISTED PT PER ARJO LIFT TO BSC. VOIDED LG AMT OF VERY CLOUDY SL DARK YELLOW URINE. PT DENIES ANY PAIN WITH VOID. BACK TO BED. CALL LIGHT IN REACH. BED ALARM SET.
[2019-11-09 05:21] VITALS: BP 105/62; PULSE 104; TEMP 98.3
[2019-11-09 05:47] VITALS: PULSE 93
[2019-11-09 07:12] LABS: BASO # 0.1 (0.0-0.2); BASO % 0.6 % (0.0-2.0); EOS # 0.7 (0.0-0.7); EOS % 6.1 % (0-4.0); GRAN # 6.2 (1.4-6.5); GRAN % 56.3 % (42.2-75.2); LYMPH % 27.6 % (20.0-51.0); MEAN CELL VOLUME 95 fl (80.0-100.0); MEAN CORPUSCULAR HGB CONC 30 g/dl (33.0-37.0); MONO # 0.9 (0.1-0.6); MONO % 8.2 % (1.7-9.3); PLATELET COUNT 592 K/mm3 (130-400); RED BLOOD COUNT 2.75 M/mm3 (4.10-5.30)
[2019-11-09 07:16] LABS: HEMOGLOBIN 7.8 g/dl (12.5-16.0); MEAN CORPUSCULAR HEMOGLOBIN 28 pg (27.0-31.0)
[2019-11-09 07:33] LABS: CALCIUM 9.3 mg/dL (8.4-10.2); CREATININE, serum 0.58 (0.52-1.25); MAGNESIUM 1.6 mg/dL (1.6-2.3); POTASSIUM 4.6 mmol/L (3.4-5.0)
--- NOTE | 2019-11-09 09:29 | NUR ---
PATIENT RESTING IN BED DURING BEDSIDE SHIFT REPORT. WAS HELPED UTILIZING [id number] TO THE BEDSIDE COMMODE, TOLERATED WELL. C/O PAIN THIS AM AND RECEIVED PRN NORCO BEFORE THERAPY.
--- NOTE | 2019-11-09 13:31 | NUR ---
Admission QIM scores were reviewed by the team. Code of 5 chosen for rolling left to right was determined by team discussion to be the most usual performance for this patient during the assessment period.--PD Stephanie
--- NOTE | 2019-11-09 13:50 | NUR ---
Correctional Manager met with the patient to follow up before the weekend. The patient reports her son and are making a ramp for her house this day. The patient has no questions at this time. SW will continue to follow.
--- NOTE | 2019-11-09 15:47 | NUR ---
Patient was seen by Dr. Garcia and he DC'd her antibiotic and IV INT. INT was removed with no difficulty.
[2019-11-09 17:02] VITALS: BP 132/57; PULSE 96; TEMP 98.4
--- NOTE | 2019-11-09 18:12 | NUR ---
PATIENT'S IV WAS DISCONTINUED FROM RIGHT AC TODAY AND STARTED ON ORAL ANTIBIOTICS. URINE IS STILL CLOUDY AND PATIENT STILL HAS IRRITATION AND INFLAMMATION TO PERINEAL AREA, ZINC APPLIED. WITCH YOSSI PADS TO APPLY TO PERINEAL AREA FOR HEMORRHOIDS. PATIENT HAD PRN NORCO TODAY FOR PAIN AND DID C/O OF SOME PHANTOM LEG PAIN. PATIENT ATE DINNER IN BED AND IS RESTING WATCHING A SHOW AT BEDSIDE SHIFT REPORT. BED IN LOW, BED ALARM ON, AND CALL LIGHT WITHIN REACH.
--- NOTE | 2019-11-09 21:00 | NUR ---
PT RESTING IN BED. HAD BEEN SLEEPING. INCONT URINE IN BRIEF. CLEANED UP. REDNESS IN GROIN AND PANNUS. CLEANEN AREA. APPLIED DESENEX POWDER. APPLIED TUCKS PAD TO HEMORHOID. REPOSITIONED FOR COMFORT.
[2019-11-10 05:20] VITALS: BP 120/66; PULSE 103; TEMP 98.2
--- NOTE | 2019-11-10 08:02 | NUR ---
PATIENT RESTING IN BED. BREAKFAST TRAY EATEN AND SITTING AT BEDSIDE. PATIENT STATES THAT HER PAIN IS A 3/10 ON A 0-10 SCALE THIS MORNING AND STATES THAT ITS A CONSTANT PAIN IN HER LEFT STUMP. PATIENT GIVEN PRN PAIN MEDICATION WITH MORNING MEDICATIONS. CALL LIGHT WITHIN REACH. BED ALARM ON. NO OTHER NEEDS AT THIS TIME.
--- NOTE | 2019-11-10 15:54 | NUR ---
PATIENT ASSISTED TO COMMODE AND BACK TO BED WITH THE SIT TO STAND LIFT. PATIENTS RIGHT 5TH TOE DRESSING REMOVED AND RE-DRESSED WITH AQUACEL AG & A BANDAID. LEFT BKA DRESSING REMOVED. INCISION CLEANSED WITH STERILE SALINE. EDGES WELL APPROXIMATED. STAR INTACT. XEROFORM, 4X4, ABD PAD X2, GAUZE ROLL AND JOSEPH DRESSING RE-APPLIED. BRACE IN PLACE TO LEFT STUMP. PATIENT TOLERATED WELL. PATIENT REPOSITIONED IN BED. PATIENT DENIES ANY NEEDS AT THIS TIME.
[2019-11-10 17:24] VITALS: BP 128/65; PULSE 95; TEMP 97.7
--- NOTE | 2019-11-10 21:00 | NUR ---
PT RESTING IN BED. CHEERFUL/ TALKATIVE. HERE EARLIER. ASSESSMENT COMPLETED. REQUIRES SIT TO STAND LIFT TO TRANSFER TO BSC TO VOID. URINE MUCH IMPROVED- CLEAR YELLOW. IMMOBILIZER TO LT BKA. ELEVATED ON PILLOWS. HEEL PROTECTOR TO RT FOOT.CALL LIGHT IN REACH. BED ALARM SET. SCD'S ON.
[2019-11-11 05:22] VITALS: BP 120/63; PULSE 77; TEMP 97.9
--- NOTE | 2019-11-11 09:24 | NUR ---
PATIENT RESTING IN BED DURING BEDSIDE SHIFT REPORT. PATIENT DENIED PAIN AT THAT TIME. PATIENT HAS BEEN UP TO BESIDE COMMODE THIS AM AND VISITING WITH ELIAN OVER THE PHONE. BED IN LOW, CALL LIGHT WITHIN REACH, AND BED ALARM ON.
[2019-11-11 17:36] VITALS: BP 124/65; PULSE 90; TEMP 98.1
--- NOTE | 2019-11-11 18:31 | NUR ---
PATIENT UP TO USE BEDSIDE COMMODE OFTEN TODAY, BOWEL MOVEMENT NEARLY EACH TIME. PATIENT C/O MORE PHATOM LEG PAIN TODAY, PRN NORCO GIVEN TWICE. WITCH YOSSI TO HEMORRHOIDS CHANGED FREQUENTLY. PATIENT RESTING IN BED AT BEDSIDE SHIFT REPORT.
[2019-11-12 05:46] VITALS: BP 129/62; PULSE 90; TEMP 98.7
--- NOTE | 2019-11-12 09:07 | NUR ---
PATIENT SLEEPING IN BED AT BEDSIDE SHIFT REPORT. PRN NORCO GIVEN THIS AM BEFORE THERAPY. PATIENT TOLERATED TRANSFER TO BEDSIDE COMMODE WELL. ZINC REAPPLIED TO BOTTOM AND WITCH YOSSI PAD IN PLACE FOR HEMORRHOIDS. WILL DO DRESSING CHANGE TO LEFT STUMP TODAY WELL DRESSING TO RIGHT 5TH TOE.
--- NOTE | 2019-11-12 13:52 | NUR ---
PRN NORCO WAS GIVEN AT 1315 FOR PHANTOM LEG PAIN.
--- NOTE | 2019-11-12 14:38 | NUR ---
Regional Account Director followed up with patient after the weekend. Patient states her and son poured concrete for the ramp at the front of the house this weekend. Patient expressed that she has been suffering from phantom pains and adjusting to changes after her BKA. Patient states she will need assistance obtaining a wheelchair upon discharge. SW will continue to follow.
[2019-11-12 16:18] VITALS: BP 124/61; PULSE 97; TEMP 98.6
--- NOTE | 2019-11-12 20:14 | NUR ---
DECREASED ROM/STRENGTH TO LLE D/T LBKA WITH IMMOBILIZER IN PLACE. PATIENT REPORTS STILL HAS SOME WEAKNESS TO BUE AND TO RLE WITH USE AND ACTIVITY. DENIES NUMBNESS/TINGLING, DENIES CHEST PAIN OR SHORTNESS OF BREATH.
[2019-11-13 05:30] VITALS: BP 116/62; PULSE 97; TEMP 98.2
--- NOTE | 2019-11-13 07:02 | NUR ---
CHANGE OF SHIFT REPORT GIVEN TO DAY SHIFT NURSEKIMBERLEE, PATIENT RESTING IN BED DURING REPORT, BED ALARM ON.
--- NOTE | 2019-11-13 07:47 | NUR ---
Assessment completed, alert/oriented, vital signs stable, reports pain is controlled this morning/ I gave 1 [place] tablet to help with discomfort once she gets up with PT at 0815, LLE immobilizer in place, SCD to RLE, patient sitting up eating breakfast/ blood sugar 132 and scheduled Levemir insulin given, she denies other needs at this time, call light in reach
--- NOTE | 2019-11-13 10:24 | NUR ---
Initial visit; Patient thanked Logistical Engineer for looking in on her, listening and offering spiritual care; especially helping her see how her situation could be a growth experience for both her and her . Logistical Engineer offered prayer and God's blessings.
[2019-11-13 16:49] VITALS: BP 112/44; PULSE 94; TEMP 98.1
--- NOTE | 2019-11-13 19:36 | NUR ---
STILL HAS SOME WEAKNESS TO BUE AND TO RLE, FATIGUED AT END OF DAY FROM DAY TIME PT/OT TREATMENTS. DENIES DISCOMFORT CURRENTLY. REPORTS SPOUSE BROUGHT DIABETIC SHOES THAT IS HELPFUL WITH TRANSFERS BUT IS UNCOMFORTABLE WITH PUTTING ON AND TAKING OFF SHOE WHEN IT COMES IN CONTACT WITH R HEEL DEEP TISSUE INJURED AREA.
--- NOTE | 2019-11-14 00:31 | NUR ---
SLEEPING AND DOES NOT WAKE WHEN DOOR TO ROOM IS OPENED BY STAFF. BREATHING NONLABORED AND EVEN, BED ALARM ON.
[2019-11-14 04:56] VITALS: BP 135/69; PULSE 91; TEMP 98.2
--- NOTE | 2019-11-14 07:25 | NUR ---
CHANGE OF SHIFT REPORT GIVEN TO DAY SHIFT NURSERASHEEDA. BED ALARM ON.
[2019-11-14 08:19] LABS: HEMATOCRIT 28.6 % (37.0-47.0); HEMOGLOBIN 8.5 g/dl (12.5-16.0)
--- NOTE | 2019-11-14 09:34 | NUR ---
Patient working with therapy at this time, call light in reach and was a two max assist with transfers this morning. Patient reporting that TV was not working this morning. Work order was placed.
--- NOTE | 2019-11-14 15:23 | NUR ---
Dressing changed to left stump with Dr. Wallace doing the dressing change. He has requested that nursing staff continue to every other day dressing changes eliminating the xeroform, but continuing the sterile 4x4's, ABD pad, kerlix and olga bandage. Patient is okay to have the immobilizer off when in bed, but to have on with transfers. Dr. Kline will look at removing the shabbir sometime next week, he thought it was still too early to remove at this time.
--- NOTE | 2019-11-14 16:36 | NUR ---
School Examiner attended family meeting with patient, patient's Anton, IPR Director Oneyda, and the therapy team. SW met with patient and Anton after the meeting and provided Medicare.gov list of agencies that serve [place]. Patient and family are interested in exploring funding sources to remodel patient's bathroom to make it wheelchair accessible. ENZO contacted the [facility] Agency on Aging and left a message for ivelisse Law counselor. ENZO also contacted the [facility] office and was advised they do not have any funding but recommended contacting [employer]. ENZO emailed Naomi at [employer] who also works with the [employer] Mother program to inquire about available resources. SW provided patient a copy of team conference notes and will follow up on DME needs including wheelchair, drop arm commode, and slide boards. ENZO contacted patient's daughter, Winnie and provided update. ENZO will continue to follow.
[2019-11-14 17:11] VITALS: BP 142/56; PULSE 91; TEMP 98.4
--- NOTE | 2019-11-14 17:53 | NUR ---
Patient's stopped by to see patient this afternoon. Patient took an afternoon nap. Patient reporting mild pain this shift and given prn pain meds with good effect. Patient had a family meeting this afternoon.
--- NOTE | 2019-11-14 20:00 | NUR ---
ASSISTED MAX 1:1 PIVOT TRANSFER TO BSC TO VOID. VOIDED W/O DIFFICULTY. ASSISTED BACK TO BED. PT REQUIRED MAX ASSIST WITH HYGEINE TASKS.
--- NOTE | 2019-11-15 00:48 | NUR ---
MAX 1 ATTEMPT BY AQUATIC PHYSIOTHERAPIST TO PIVOT TRANSFER. PT RT LEG WEAK. ATTEMPTED TRANSFER WITH RN AND AQUATIC PHYSIOTHERAPIST ASSISTING WITH PANTS AND BSC. ABLE TO TRANSFER TO BSC. VOIDED. PT RT LEG TOO WEAK TO STAND WITH 2 ASSIST. SAT PT BACK ON BCS AND TRANSFERRED WITH SIT TO STAND. PT HIGH FALL RISK. INSTRUCTED PT AND AQUATIC PHYSIOTHERAPIST TO USE SIT TO STAND LIFT THROUGH THE REST OF THE NIGHT.
--- NOTE | 2019-11-15 03:22 | NUR ---
PT SLEEPING. NO DISTRESS.
[2019-11-15 05:06] VITALS: BP 108/62; PULSE 89; TEMP 98
--- NOTE | 2019-11-15 08:00 | NUR ---
Patient resting in bed, call light in reach bed alarm set. Patient's right foot is very boggy this morning and is fluid filled and dark in color. Patient is aware of this and reports no pain to area. Therapy was called to inform of this change in her foot. Will continue to monitor and will contact physician today.
--- NOTE | 2019-11-15 08:50 | NUR ---
Call to Dr. Alas requesting that he take a look at patient's right heel. Reporting that it is very boggy and fluid filled. This nurse is asking for guidance on how to treat the area once it opens up. Dr. Alas will be coming by sometime today to look at this.
--- NOTE | 2019-11-15 09:32 | NUR ---
Applied mepilex over right heel for added protection due to fluid filled ulcer.
--- NOTE | 2019-11-15 16:47 | NUR ---
Case Management Director contacted the [facility] Agency on Aging and left a another message for options counseling. ENZO contacted Naomi from [facility] who advised they do not provide any funding for home improvements but suggested both [employer] and [employer]. ENZO contacted the [place] [employer] office and left a message. ENZO followed up with patient who selected [facility]. SW to fax referral and will continue to follow.
[2019-11-15 17:03] VITALS: BP 134/53; PULSE 91; TEMP 98.4
--- NOTE | 2019-11-15 19:36 | NUR ---
Patient attended all therapies today. Staff used sit to stand with patient this shift. Patient was seen by PA and no changes to her right heel with cares at this time. Continue to monitor. Patient denied any questions. Her stopped by to visit today. Patient was given permission to propell around the IPR unit in her wheelchair in the evening and on the weekend. Patient currently resting in bed, call light in reach and bed alarm set.
--- NOTE | 2019-11-15 20:00 | NUR ---
PT RESTING IN BED. CHEERFUL AND TALKATIVE. ULTRAM HELPED WITH LT STUMP PAIN. IMMOBILIZER IN PLACE. RT LATERAL HEEL DEEP TISSUE INJURY PURPLE AND BOGGY. DR AWARE PER REPORT FROM RASHEEDA KING RN. USING SIT TO STAND LIFT TO TRANSFER TO BSC. CALL LIGHT IN REACH. BED ALARM SET.
[2019-11-16 05:35] VITALS: BP 143/70; PULSE 85; TEMP 97.9
--- NOTE | 2019-11-16 08:00 | NUR ---
Patient laying in bed, A&Ox3. VSS. Patient reporting pain in calf, requested pain medication. Patient independent with eatting and shifting weight in bed. Air mattress in place. Patient assisted with sit to stand nursingx2 to [facility] [place]. Patient tolerated well. Patient was able to reposition herself in bed with minimal assist from nursing staff. Knee immobilizer to left knee. Dressing in place and leg elevated on pillow. Right heel dressing applied. No further needs expressed fromt the patient. Call light within reach. Bed alarm on
--- NOTE | 2019-11-16 16:16 | NUR ---
C Engineer contacted [facility] and faxed referral. Rosetta at [facility] left a message for SW and advised that they would have to decline referral as their nursing staff is not able to provide services in [place]. SW followed up with patient who advised [facility] is her second preference. SW contacted Leander at [facility] and faxed referral. ENZO contacted Marcia at the [facility] Agency on Aging who advised SW to contact [facility] Ramon/Loan program (ph#[phone]) and the [employer]/[place] program (ph#[phone]). SW contacted the [employer] program and SW was advised that their call center is overwhelmed with calls at this time due to [place]. SW then contacted [facility] and had to leave a message with the customer service line (ph#[phone]). ENZO contacted patient's daughter, Winnie and provided update. Winnie states she will work with patient's sister who lives in [place] to get drop arm commode ordered. ENZO will continue to follow.
[2019-11-16 17:45] VITALS: BP 138/73; PULSE 93; TEMP 97.8
[2019-11-17 05:46] VITALS: BP 116/49; PULSE 94; TEMP 98.4
--- NOTE | 2019-11-17 05:54 | NUR ---
PT UP MULTIPLE TIMES TO COMMODE USING SIT TO STAND. ADI FOR PAIN TO LLE AT H.[facility]. FOR PAIN. PT HAVING A LOT OF PHANTOM TYPE PAIN.
--- NOTE | 2019-11-17 15:32 | NUR ---
Patient resting in bed, call light in reach bed alarm set and calling in her order for this evening's meal. Patient given prn pain meds this morning for left stump phantom pain. This has been effective. Patient denies questions at this time.
[2019-11-17 16:50] VITALS: BP 118/54; PULSE 87; TEMP 98.3
[2019-11-17 18:29] LABS: COLLECTION METHOD CLEAN CATCH
[2019-11-17 19:26] LABS: MUCOUS Present /lpf; PH 5 (5-8); SQUAMOUS EPITHELIAL None Seen /hpf; URINE APPEARANCE Clear; URINE BACTERIA Rare /hpf; URINE BILIRUBIN Negative (NEGATIVE); URINE BLOOD Negative (NEGATIVE); URINE COLOR Yellow; URINE GLUCOSE Negative (NEGATIVE); URINE KETONE Negative (NEGATIVE); URINE LEUKOCYTE ESTERASE Negative (NEGATIVE); URINE NITRATE Negative (NEGATIVE); URINE PROTEIN(semi-quant) Negative (NEGATIVE); URINE RBC 0-2 /hpf; URINE UROBILINOGEN Negative (NEGATIVE)
--- NOTE | 2019-11-17 19:36 | NUR ---
PATIENT RESTING IN BED DURING CHANGE OF SHIFT REPORT FROM DAY SHIFT NURSE. BED ALARM ON.
--- NOTE | 2019-11-17 23:13 | NUR ---
DECREASED ROM/STRENGTH TO LLE D/T BKA WITH LOCK KNEE BRACE IN PLACE AND LLE ELEVATED. R LLE ON PILLOW TO ELEVATE R HEEL. DENIES CHEST PAIN, SHORTNESS OF BREATH OR NUMBNESS/TINGLING AT THIS TIME. BED ALARM ON.
[2019-11-18 06:06] VITALS: BP 143/46; PULSE 83; TEMP 98
--- NOTE | 2019-11-18 06:50 | NUR ---
CHANGE OF SHIFT REPORT GIVEN TO DAY SHIFT NURSECLARICE. BED ALARM ON.
--- NOTE | 2019-11-18 07:12 | NUR ---
PATIENT SLEEPING IN BED AT BEDSIDE SHIFT REPORT. BED IN LOW, BED ALARM ON, CALL LIGHT WITHIN REACH.
--- NOTE | 2019-11-18 13:50 | NUR ---
LOKI CARE GIVEN, WARM SOAP AND WATER WASHED VAGINAL AREA AND UNDER PANUS AND DRIED WELL. APPLIED DESENEX POWDER, ZINC TO SACRAL AREA, AND WITCH YOSSI PADS TO HEMRHOIDS. DRESSING CHANGED TO LBKA ONE SPOT OF SEROUS DRAINAGE TO RIGHT SIDE SMALL AMOUNT. INCISION SITE IS WITHOUT ERYTHEMA, EDEMA, WARMTH. INCISION APPROXIMATING WELL. PATIENT TOLERATED DRESSING CHANGE WELL. NEW AQUACELL SILVER APPLIED TO RIGHT 5TH TOE WITH BANDAID, LOOKS TO BE HEALING WELL. RIGHT HEEL DEEP TISSUE INJURY HAS ENLARGED AND IS PROTRUDING MORE. CONTINUING TO FLOAT, HEEL CUSHION IN PLACE. PRN NORCO GIVEN AFTER DRESSING CHANGE.
[2019-11-18 18:23] VITALS: BP 112/62; PULSE 97; TEMP 98.7
--- NOTE | 2019-11-18 19:05 | NUR ---
RECEIVED CHANGE OF SHIFT REPORT FROM DAY SHIFT NURSE. BED ALARM ON. PATIENT WITH NO NEEDS REPORTED AT TIME OF REPORT.
--- NOTE | 2019-11-18 20:00 | NUR ---
DECREASED ROM/STRENGTH TO LLE D/T LBKA, BRACE CONTINUES TO LLE PER DO. REPORTS STILL HAS PHANTOM DISCOMFORT BUT DENIES NEED FOR PAIN MEDS AT THIS TIME. BED ALARM ON.
[2019-11-19 04:41] VITALS: BP 118/66; PULSE 80; TEMP 98
--- NOTE | 2019-11-19 07:27 | NUR ---
CHANGE OF SHIFT REPORT GIVEN TO DAY SHIFT NURSECLARICE. BED ALARM ON.
--- NOTE | 2019-11-19 09:11 | NUR ---
PATIENT WAS SLEEPING IN BED AT BEDSIDE SHIFT REPORT. WITH LEGS FLOATING ON PILLOW, BED IN LOW, CALL LIGHT WITHIN REACH, BED ALARM ON.
--- NOTE | 2019-11-19 10:27 | NUR ---
Follow-up visit; Patient thanked Polishing Wheel Setter for checking up on her and offering God's blessings. Patient states she enjoys Polishing Wheel Setter's visits.
[2019-11-19 15:40] VITALS: BP 135/62; PULSE 95; TEMP 98.7
--- NOTE | 2019-11-19 17:44 | NUR ---
PATIENT RESTING IN BED. PAIN MANAGED WELL TODAY. PANUS, VAGINAL, GROIN, AND LOKI AREA CLEANSED WITH SOAP AND WATER, PAT DRIED, DESENEX POWDER APPLIED IN FRONT AND ZINC IN BACK. PATIENT CONTINUED TO ENCOURAGE TO FLOAT HEEL AND HEEL CUSHION AND BOOT IS IN PLACE. BED IN LOW, CALL LIGHT WITHIN REACH, BED ALARM ON.
--- NOTE | 2019-11-19 19:00 | NUR ---
CHANGE OF SHIFT REPORT RECEIVED FROM DAY SHIFT NURSE. BED ALARM ON.
--- NOTE | 2019-11-19 20:00 | NUR ---
DECREASED ROM/STRENGTH TO LLE D/T LBKA, LOCKED KNEE BRACE IN PLACE TO [facility] SITE. PATIENT USING SLIDE BOARD FOR TRANSFERS TO AND FROM [facility] WITH X1-2 STAFF ASST. DENIES CHEST PAIN,SHORTNESS OF BREATH CURRENTLY. BED ALARM ON, WHEN IN BED.
[2019-11-20 06:12] VITALS: BP 139/57; PULSE 84; TEMP 97.9
--- NOTE | 2019-11-20 07:27 | NUR ---
CHANGE OF SHIFT REPORT GIVEN TO DAY SHIFT NURSERASHEEDA. BED ALARM ON.
--- NOTE | 2019-11-20 10:57 | NUR ---
Patient attending therapies today. Right heel deep tissue injury had drainage yesterday bloody. No drainage this morning. Area is closed and no redness observed. Patient has been off loading from that leg. Patient reports that she had a couple of scares when being transferred yesterday and has preferred using the sit to stand for safety. This nurse will work with OT today to better educate staff and patient on safely transferring from bed to bedside commode and bed to wheelchair. Will continue to monitor.
--- NOTE | 2019-11-20 11:43 | NUR ---
Vielka (ph#[phone]), at [facility], reports that they are able to accept the patient for services. SW to inform the patient and will continue to follow.
--- NOTE | 2019-11-20 11:50 | NUR ---
Wound Care: 1. LLE: Dressing changes every other day using sterile 4x4s, ABD pad, then secured with kerlix and olga wrap. Leg Brace on LLE at night and when mobilizing. Okay to remove at other times. Elevate LLE. 2. Right 5th toe: Dressing changes every day using Aquacel AG on open area and secured with a bandaid. 3. Right Heel: Deep Tissue Injury - off load weight.
--- NOTE | 2019-11-20 13:00 | NUR ---
Patient resting in wheelchair following lunch, has call light in reach and alarm is on. Will continue to monitor.
--- NOTE | 2019-11-20 13:01 | NUR ---
This nurse changed dressing to right 5th toe wound. Area continues to heal with no redness observed or drainage. Area was cleaned with sterile saline, patted dry and redressed with Aquacel AG and secured with a bandaid.
--- NOTE | 2019-11-20 13:59 | NUR ---
ENZO faxed the patient's wound care notes to Vielka at [facility].
--- NOTE | 2019-11-20 14:57 | NUR ---
ENZO contacted Farida, at [facility], to inquire about their sizes for a sliding board. Farida reports that they have a 27 inch plastic board and a 24 inch and 30 inch wooden board. ENZO staffed with Leroy from and informed him of their sizes. Leroy recommends the 30 inch board. ENZO met with the patient to introduce oneself and review equipment needs. The patient reports that she is doing okay, just got her stitches out. The patient reports that she is agreeable with getting the wheelchair and the 30 inch sliding board from [facility]. ENZO faxed the equipment script to Farida at [facility]. The patient reports that she does not feel confident for the tentative d/c on Tuesday and would like some more time. IPR Director is aware of this. The patient reports that her and daughter are working on re-arranging their house and plan on remodeling their bathroom. The patient had no other questions or concerns for ENZO at this time. ENZO to continue to follow.
--- NOTE | 2019-11-20 15:10 | NUR ---
Dr. Wallace arrived this afternoon and removed shabbir to left lower leg incision. Patient tolerated with only minimal discomfort reported. Dressing was reapplied per Dr. Wallace. Will continue to monitor.
[2019-11-20 17:43] VITALS: BP 143/66; PULSE 94; TEMP 97.7
--- NOTE | 2019-11-20 19:00 | NUR ---
CHANGE OF SHIFT REPORT RECEIVED FROM DAY SHIFT NURSE. BED ALARM ON.
--- NOTE | 2019-11-20 19:09 | NUR ---
Patient was a sit to stand with transferring from bed to bed side commode this shift. Patient gets herself compltely ready and sits at side of bed and waits for the sit to stand to be placed. She helps with getting in position and does pull her shorts down and up before and after toileting.
--- NOTE | 2019-11-20 20:00 | NUR ---
DRSG TO L BKA, INTACT, PATIENT NEEDING TO USE LIFT FOR OUT OF BED TRANSFERS TO AND FROM BSC/BACK TO BED, CONTINUES WITH R HEEL DEEP TISSUE INJURY IS NOT CURRENTLY DRAINING W/NO ODOR, OBSERVED TO DISTAL END OF HEEL INJURY SITE, OBSERVED SKIN FLAP, OBSERVED SMALLER AREA OF DISCOLORATION, STILL NO REDNESS SURROUNDING AREA OF DEEP TISSUE INJURY. HEEL CUP/PROTECTOR IN PLACE TO R HEEL & FLOATING RIGHT HEEL OFF BED WITH PILLOW UNDER LOWER PART OF R LEG. BED ALARM ON.
[2019-11-21 05:37] VITALS: BP 139/68; PULSE 92; TEMP 98.3
--- NOTE | 2019-11-21 07:07 | NUR ---
CHANGE OF SHIFT REPORT GIVEN TO DAY SHIFT NURSERASHEEDA. BED ALARM ON.
--- NOTE | 2019-11-21 09:17 | NUR ---
Follow-up; Patient thanked Cylinder Press Operator Helper for looking in on her offering God's blessings this morning.
--- NOTE | 2019-11-21 10:02 | NUR ---
Patient resting in wheelchair, call light in reach and alarm set. Patient tolerated diet well this morning. Denies questions at this time.
--- NOTE | 2019-11-21 11:07 | NUR ---
Patient resting in wheelchair, call light in reach and alarm set. Patient reports pain is under control at this time. Will continue to monitor.
--- NOTE | 2019-11-21 16:48 | NUR ---
ENZO met with the patient to present and review the IPR Team Conference Note. ENZO reviewed the patient's progress and the team's recommendation for d/c next Tuesday, 11/26, now with home health services for PT/OT. The patient reports that she feels like she should be able to go home by then. ENZO discussed the option of SNF, if she does not feel ready to go home. The patient states that she thinks that she will be fine going home. ENZO notified Gloria at [facility] of the new d/c date. ENZO notified Lea at [facility] of the d/c date. PT is recommending a wheelchair with removeable/swing away arms. ENZO informed Lea of this. Lea reports that they do not supply these. ENZO contacted Oneyda at [facility]. Oneyda reports that they do have these wheelchairs in stock. ENZO to fax the patient's script to [facility]. ENZO to contact and update the patient's . ENZO to continue to follow.
[2019-11-21 17:01] VITALS: BP 130/70; PULSE 93; TEMP 98
--- NOTE | 2019-11-21 19:15 | NUR ---
Received report from JUN Ramey. Pt was sitting up in bed and called out for assistance with using the bedside commode. Pt transferred well with her sliding board. Pt has her call light within reach and her bed is in lowest position.
--- NOTE | 2019-11-22 04:56 | NUR ---
Pt has called several times during the night to use the bedside commode. Pt has transferred very well with the sliding board. Pt has even improved during the night. Pt boot that she has does tend to slide when she's trying to move but she tolerated everthing else very well. Pt was assisted with cleaning after each void. Zinic was applied after each time due to redness. Pt stated that the area was not painful but her hemorrids were very tender, tuck pad was applied after once she voided the second time. Pt is currently back in bed and sleeping at this time. She has her call light within reach. Both of her legs are elevated on the pillow at this time.
[2019-11-22 05:14] VITALS: BP 122/59; PULSE 93; TEMP 98
--- NOTE | 2019-11-22 06:38 | NUR ---
Pt is currently back in bed but pt was just assisted to the bedside commode. Pt transferred well this time and has her call light within reach and her bed is in lowest position.
--- NOTE | 2019-11-22 16:18 | NUR ---
ENZO contacted and updated the patient's , Enedina, on the new discharge date. Enedina was agreeable to the new d/c date. ENZO also informed him about how [facility] has the wheelchair with swing away arms and how [facility] has the sliding board. Enedina was agreeable with getting the wheelchair from [facility] and the sliding board from [facility]. ENZO contacted and faxed the wheelchair order to Griffin at [facility]. ENZO notified Farida at [facility] of the patient and her wanting to pursue the sliding board through them. [facility] plans to deliver the sliding board on Tuesday. ENZO to continue to follow.
[2019-11-22 17:47] VITALS: BP 119/69; PULSE 97; TEMP 98
--- NOTE | 2019-11-22 18:20 | NUR ---
LEFT BKA DRESSING REMOVED. INCISION EDGES WELL APPROXIMATED. SMALL AMOUNT OF SEROUS DRAINAGE FROM THE MEDIAL PORTION OF THE INCISION PRESENT ON 4X4 GAUZE WHEN REMOVED. INCISION CLEANED WITH STERILE SALINE AND PATTED DRY WITH GAUZE. 4X4 GAUZE, ABD PAD, KERLIX AND JOSEPH WRAP APPLIED TO LEFT BKA SITE. PATIENT TOLERATED WELL. RIGHT 5TH TOE BANDAID REMOVED. NEW AQUACEL AG STRIP AND BANDAID PLACED ON RIGHT 5TH TOE. BLE ELEVATED ON PILLOWS. HEEL CUP, YELLOW SOCK AND BOOT APPLIED TO RIGHT FOOT. SCD APPLIED TO RLE. COMMODE SET UP AT THE END OF THE BED PER OCCUPATIONAL THERAPIES REQUEST. CALL LIGHT WITHIN REACH. PATIENT DENIES ANY NEEDS AT THIS TIME. WILL REPORT OFF TO ON-COMING NURSE.
--- NOTE | 2019-11-23 02:24 | NUR ---
Pt has been up a couple of times during the shift. Pt last time she called she requested something pain. Pt has been having phantom pain. Pt was given something for pain at this time. Pt transferred very well with the sliding board each time that she has transferred throughout the night.
--- NOTE | 2019-11-23 06:59 | NUR ---
Reported off to JUN Cruz. Pt is currently lying in bed. Pt was asked a couple times this morning if she was ok with getting dressed for therapy. Pt stated that she wanted to wait a little longer. This was passes along in shift report this morning. Pt did call and request something for pain a little after midnight and other than going to the bedside commode pt has slept well. Pt has her call light within reach and her bed is in lowest position.
--- NOTE | 2019-11-23 09:10 | NUR ---
PATIENT SLEEPIN IN BED AT BEDSIDE SHIFT REPORT. PATIENT RECEIVED PRN PAIN MEDS AFTER MIDNIGHT. BED IN LOW, CALL LIGHT WITHIN REACH, BED ALARM ON.
--- NOTE | 2019-11-23 17:18 | NUR ---
Patient Care Coordinator faxed signed order for wheelchair to [facility].
--- NOTE | 2019-11-23 18:07 | NUR ---
PATIENT RECEIVED PRN NORCO ONCE THIS SHIFT PRIOR TO THERAPY. DENIED PAIN THE REST OF THE SHIFT. PATIENT'S JOSEPH WRAP REWRAPPED AFTER COMING LOOSE, NO DRAINAGE NOTED. DRESSING TO LOWER RIGHT 5TH TOE INTACT. ENCOURAGING PATIENT TO CLEANSE SELF AND PROVIDING LOKI CARE NEEDED. PATIENT IN WC AT BEDISDE SHIFT REPORT. CHAIR ALARM IN PLACE, CALL LIGHT WITHIN REACH.
[2019-11-23 18:22] VITALS: BP 120/74; PULSE 96; TEMP 98
--- NOTE | 2019-11-23 21:00 | NUR ---
RESTING IN BED. WATCHING TV. [employer] SPIRITS. LT BKA PAIN LEVEL 6. SEE MAR. OVIEDO FOR YEAST TREATMENT DONE. ENC REPOSITIONING FREQ. LT BKA ON PILLOWS. SCD ON RLE. CALL LIGHT IN REACH. BED ALARM SET.
[2019-11-24 05:29] VITALS: BP 129/68; PULSE 87; TEMP 98.1
--- NOTE | 2019-11-24 07:33 | NUR ---
Sitting up in bed with eyes open watching TV. Just completed breakfast. Rates pain 3/10 in left leg and would like [place] as she knows her pain will increase when she does therapy. [place] administered as prescribed. Patient groin area reddened from yeast infection. Right heel has dressing in place for deep tissue heel injury. Patient denies any additional needs at this time.
--- NOTE | 2019-11-24 11:08 | NUR ---
Sitting up in chair in room watching TV. Rates pain in left leg 3/10 at this time. Denies need for pain medication at this time. Denies any additional needs.
--- NOTE | 2019-11-24 16:22 | NUR ---
Lying in bed with eyes open. Would like to get up to BSC and then wheel chair at this time. Patient uses slide board to transfer self to commode. Requires very minimal assistance. Patient voids and performs personal hygiene. Patient uses slide board to transfer from BSC to wheel chair. Transfers self well. Rates pain 3/10 in left BKA at this time, will let staff know if needs medication. Denies additional needs at this time.
[2019-11-24 16:58] VITALS: BP 132/57; PULSE 88; TEMP 97.9
--- NOTE | 2019-11-24 18:15 | NUR ---
Sitting up in wheel chair watching TV and talking with . Patient denies needs or concerns at this time.
--- NOTE | 2019-11-24 19:13 | NUR ---
PT ABLE TO USE SLIDE BOARD TO TRANSFER SELF TO BSC THEN OVER TO BED WITH SBA ONLY. PT MANAGES HYGEINE HERSELF WITH SET UP ONLY. NEEDED ASSIST WITH REMOVING RT SHOE AND PLACING FOAM/ GAYMAR HEEL PROTECTOR ON. ELEVATED RLE ON PILOWS. RT HEEL HAS RUPTURED DEEP TISSUE INJURY WITH MINMAL SANGUINOUS DRAINAGE. PT DENIES PAIN TO THIS AREA. PT IN [facility] SPIRITS. NO OTHER NEEDS AT THIS TIME. BED ALARM SET. CALL LIGHT IN REACH.
--- NOTE | 2019-11-25 05:21 | NUR ---
PT UP TO BSC. RETURNED TO BED. DECLINED DRSG CHANGE TO LT STUMP AT THIS TIME. PT TIRED AND WANTS TO GO BACK TO SLEEP. PT TRY AGAIN AT SHIFT CHANGE. SUPPLIES IN ROOM.
[2019-11-25 06:13] VITALS: BP 148/53; PULSE 91; TEMP 98.2
--- NOTE | 2019-11-25 07:09 | NUR ---
Sitting up in bed watching TV and starting to eat breakfast. Denies pain at this time. Denies any further concerns or needs.
--- NOTE | 2019-11-25 08:30 | NUR ---
Dressing changes performed to left BKA, right pinky toe, and right heel. Removed dressing from BKA. Incision edges healing well, no discharge/swelling/redness noted. Site cleaned with normal saline then dried. Four 2x2's applied to site, abd then placed on top of the 2x2's, wrapped with Kerlix and then the olga wrap. Bandaid removed from right pinky toe. Site cleaned and dried. Zinc applied to area, aquacel placed on top of zinc, site covered with band aid. Right heel with stage 2 pressure ulcer, minimal purulent discharge noted on foam covering. New foam applied to area and reinforced with sock. Heel protector applied to right foot. Elevated right leg and left BKA on pillows. Patient denies additional needs at this time.
--- NOTE | 2019-11-25 13:45 | NUR ---
Patient complains of pain in left BKA. JUN Kraft, administers [place] as prescribed.
--- NOTE | 2019-11-25 16:01 | NUR ---
Patient lying in bed talking on phone. Denies needs or concerns at this time.
[2019-11-25 16:31] VITALS: BP 128/75; PULSE 98; TEMP 98.3
--- NOTE | 2019-11-25 20:30 | NUR ---
PT RELATES DOING WELL TODAY. TRANSFERS SELF FROM W/C TO BSC THEN TO BED WITH SBA. LT STUMP DRSG CDI. SEE MAR FOR PAIN MEDICATIONS GIVEN. CALL LIGHT IN REACH. BED ALARM SET.
[2019-11-26 05:00] VITALS: BP 140/81; PULSE 88; TEMP 97.7
--- NOTE | 2019-11-26 07:10 | NUR ---
NO BM SINCE MIRALAX GIVEN EARLIER. PT PASS FLATUS.
--- NOTE | 2019-11-26 10:32 | NUR ---
Patient attending group therapy at this time. Patient was a SBA with slide board this morning to the bedside commode and to the wheelchair. Patient in pleasent mood. Tolerated breakfast well. Denies questions.
--- NOTE | 2019-11-26 13:43 | NUR ---
Patient sleeping in bed at this time, call light in reach and bed alarm set. Patient has had a few small BM's that were hard this morning. Given prn anusol suppository due to hemorroid issues this afternoon. Will continue to monitor.
[2019-11-26 17:49] VITALS: BP 121/61; PULSE 99; TEMP 98.9
--- NOTE | 2019-11-27 05:30 | NUR ---
Patient slept most the night. No bowel movements during the night. She had pain meds at bedtime and rested comfortably after that. No other changes at this time. Call light within reach.
[2019-11-27 05:44] VITALS: BP 147/75; PULSE 94; TEMP 98
[2019-11-27] MEDS ORDERED: TYLENOL 325MG325 MG PO (08:46)
[2019-11-27] MEDS ORDERED: DESENEX TP (08:47)
[2019-11-27] MEDS ORDERED: ANUSOL-HC SUPPO25 MG RC (08:47)
[2019-11-27] MEDS ORDERED: TUCKS50% TP (08:48)
[2019-11-27] MEDS ORDERED: ZINC OXIDE 28GM TOP (08:48)
--- NOTE | 2019-11-27 09:24 | NUR ---
Patient was tearful this morning worried about going home. She is currently having some constipation and worried that she will not be able to have a bowel movement before leaving. Patient reporting pain 6/10 this morning generalized and was given prn Gordon. Patient currently sleeping in bed. She was incontient of urine and bowel this morning. Patient given a prn suppository and awaiting its results. Will continue to monitor.
[2019-11-27] MEDS ORDERED: NORCO 325 MG-51 TAB PO (09:42)
[2019-11-27] MEDS ORDERED: LEVEMIR100 U/ML SQ (09:47)
--- NOTE | 2019-11-27 11:02 | NUR ---
Farida, at [facility], reports that they will deliver the sliding board to the patient's room this morning. Judi, at [facility], reports that they need to speak to the patient's before they can deliver the wheelchair. ENZO contacted the patient's , Enedina, and updated him on the above information. Enedina states that he will contact [facility]. ENZO provided him with [facility]'s phone number. ENZO then followed up with Oneyda at [facility]. Oneyda reports that they will have someone deliver the wheelchair to the patient's room today. ENZO met with the patient to update. The patient reports that her family found a drop arm commode at [facility]. ENZO also presented and read the IM form outloud to the patient. The patient verbalized understanding and gave ENZO approval to sign the form on her behalf. ENZO provided her with a copy. The patient is to discharge back home with her today, 11/26, with home health services for fpc/PT/OT from [facility]. ENZO notified and faxed the d/c orders to Vielka at [facility]. No additional needs at this time.
--- NOTE | 2019-11-27 13:44 | NUR ---
Discharge QIM scores were reviewed by the team. Code of 4 for chair/bed to chair transfers was determined by team discussion to be the most usual performance for this patient during the assessment period.--Oneyda London,
--- NOTE | 2019-11-27 17:00 | NUR ---
Patient Health Summary, Discharge Summary, and Home Meds printed and reviewed with patient and . Stressed importance of follow up appointments. Reviewed medications, provided printed prescription for Isabela. Called prescription for Iron to pharmacy of choice. Belongings gathered by Karoline/JUN including immobilizer; wheelchair; slide board; cellphone; heat treat supervisor; glasses; purse; and misc. clothes and items. Patient transported via wheelchair by Karoline/JUN and seatbelted for ride home with . Patient was a two max assist using slide board to get into car.
--- NOTE | 2019-11-27 21:09 | NUR ---
Patient has no open sores on her bottom or rick area all have healed. She has some redness and excoriation in some areas, zinc was applied to those areas. Dressing was changed to LBKA with only one small area that had dry bloody drainage. Changed dressing with 4x4's, ABD pad, Kerlix and secured with Jorje wrap and immobilizer. Patient had a large BM this morning that was incontinent of both stool and urine. She was asked to go to the bed side commode and she did transfer via slide board with SBA, but took a lot of encouragement by staff. Patient was very nervous about going home.
== END 2019-11-27 15:55 | disposition home health service (06) | DRG 560 ==
PROVIDERS: Physician Assistant; ADMIT Internal Medicine
DX: Z47.81 Encounter for orthopedic aftercare following surgical amputation (principal); E87.2 Acidosis; L03.116 Cellulitis of left lower limb; M86.9 Osteomyelitis, unspecified; N39.0 Urinary tract infection, site not specified; L97.419 Non-pressure chronic ulcer of right heel and midfoot with unspecified severity; L97.519 Non-pressure chronic ulcer of other part of right foot with unspecified severity; E11.51 Type 2 diabetes mellitus with diabetic peripheral angiopathy without gangrene; E11.42 Type 2 diabetes mellitus with diabetic polyneuropathy; E11.65 Type 2 diabetes mellitus with hyperglycemia; E11.621 Type 2 diabetes mellitus with foot ulcer; I95.9 Hypotension, unspecified; D50.9 Iron deficiency anemia, unspecified; I10 Essential (primary) hypertension; F32.9 Major depressive disorder, single episode, unspecified; D72.829 Elevated white blood cell count, unspecified; E78.5 Hyperlipidemia, unspecified; Z79.4 Long term (current) use of insulin; Z79.82 Long term (current) use of aspirin; Z79.891 Long term (current) use of opiate analgesic; Z87.891 Personal history of nicotine dependence; Z95.820 Peripheral vascular angioplasty status with implants and grafts
CPT/HCPCS: 99222-AI; 99231-AI; 99232-AI; 99233-AI; 99239; J0696; J1815

== ENCOUNTER 2020-07-31 16:57 | Emergency (ER) | payer MEDICARE, OTHER ==
[~2020-07-31] VITALS: Ht 162.6 cm; Wt 113.6 kg
[~2020-07-31 16:57] MED LIST changes: +ANUSOL-HC SUPPO25 MG RC; +DESENEX TP; +LEVEMIR100 U/ML SQ; +TUCKS50% TP; +TYLENOL 325MG325 MG PO; +ZINC OXIDE 28GM TOP
[2020-07-31 17:42] LABS: BASO # 0.1 (0.0-0.2); BASO % 0.7 % (0.0-2.0); EOS # 0.4 (0.0-0.7); EOS % 2.6 % (0-4.0); GRAN # 8.7 (1.4-6.5); GRAN % 63.6 % (42.2-75.2); HEMATOCRIT 38.5 % (37.0-47.0); HEMOGLOBIN 12.4 g/dl (12.5-16.0); LYMPH # 3.4 (1.2-3.4); LYMPH % 25.3 % (20.0-51.0); MEAN CELL VOLUME 91 fl (80.0-100.0); MEAN CORPUSCULAR HEMOGLOBIN 30 pg (27.0-31.0); MEAN CORPUSCULAR HGB CONC 32 g/dl (33.0-37.0); MONO % 7.4 % (1.7-9.3); PLATELET COUNT 232 K/mm3 (130-400); RED BLOOD COUNT 4.21 M/mm3 (4.10-5.30); REDCELL DISTRIBUTION WIDTH-CV 14.5 % (11.5-14.5)
[2020-07-31 17:54] LABS: C-REACTIVE PROTEIN 3.1 mg/dL (0.0-0.9)
[2020-07-31 18:09] LABS: TROPONIN-I 0.052 ng/mL (0.000-0.035)
[2020-07-31 18:38] LABS: ALBUMIN 4.1 gm/dL (3.5-5.0); BILIRUBIN,TOTAL 0.3 mg/dL (0.0-1.0); CALCIUM 9.1 mg/dL (8.4-10.2); CREATININE, serum 0.88 (0.52-1.25); POTASSIUM 4.9 mmol/L (3.4-5.0); TOTAL PROTEIN 7.6 gm/dL (6.4-8.2)
[2020-07-31 20:19] LABS: COLLECTION METHOD CATHETER
[2020-07-31 20:29] LABS: MUCOUS Present /lpf; PH 5 (5-8); SQUAMOUS EPITHELIAL 0-2 /hpf; URINE APPEARANCE Cloudy; URINE BACTERIA Many /hpf; URINE BILIRUBIN Negative (NEGATIVE); URINE BLOOD 1+ (NEGATIVE); URINE COLOR Yellow; URINE GLUCOSE Negative (NEGATIVE); URINE KETONE Negative (NEGATIVE); URINE LEUKOCYTE ESTERASE 2+ (NEGATIVE); URINE NITRATE Positive (NEGATIVE); URINE PROTEIN(semi-quant) 3+ (NEGATIVE); URINE UROBILINOGEN Negative (NEGATIVE)
[2020-07-31 21:00] VITALS: BP 87/77; PULSE 90; TEMP 97.8
== END 2020-07-31 21:05 | disposition short-term general hospital (02) ==
LOC: COL.ER 16:57
PROVIDERS: Emergency Medicine; Nurse Practitioner
DX: R06.02 Shortness of breath (principal); R74.01 Elevation of levels of liver transaminase levels; R74.8 Abnormal levels of other serum enzymes; I95.9 Hypotension, unspecified; E11.9 Type 2 diabetes mellitus without complications; Z79.4 Long term (current) use of insulin; Z79.02 Long term (current) use of antithrombotics/antiplatelets; Z20.822 Contact with and (suspected) exposure to COVID-19
CPT/HCPCS: J2405; J2543; J3370; J7030; J7050; J7060

== ENCOUNTER 2020-10-06 11:39 | Inpatient (IN) | payer MEDICARE, OTHER ==
[~2020-10-06] VITALS: Ht 162.6 cm; Wt 118.2 kg
[2020-10-06 14:18] LABS: BASO # 0.1 (0.0-0.2); BASO % 0.5 % (0.0-2.0); EOS # 0.5 (0.0-0.7); EOS % 4.2 % (0-4.0); GRAN # 8.3 (1.4-6.5); GRAN % 64.4 % (42.2-75.2); LYMPH # 2.9 (1.2-3.4); LYMPH % 22.3 % (20.0-51.0); MEAN CELL VOLUME 86 fl (80.0-100.0); MEAN CORPUSCULAR HGB CONC 30 g/dl (33.0-37.0); MEAN PLATELET VOLUME 9.5 fl (7.4-10.4); MONO % 8.1 % (1.7-9.3); PLATELET COUNT 589 K/mm3 (130-400); REDCELL DISTRIBUTION WIDTH-CV 16.2 % (11.5-14.5)
[2020-10-06 14:21] LABS: HEMATOCRIT 31.7 % (37.0-47.0); HEMOGLOBIN 9.5 g/dl (12.5-16.0); MEAN CORPUSCULAR HEMOGLOBIN 26 pg (27.0-31.0)
[2020-10-06 14:32] LABS: BILIRUBIN,TOTAL 0.2 mg/dL (0.0-1.0); CALCIUM 10.1 mg/dL (8.4-10.2); CREATININE, serum 0.84 (0.52-1.25); POTASSIUM 4.8 mmol/L (3.4-5.0); TOTAL PROTEIN 8.3 gm/dL (6.4-8.2)
[2020-10-06 14:57] LABS: C-REACTIVE PROTEIN 17.8 mg/dL (0.0-0.9)
[2020-10-06 15:06] LABS: ERYTHROCYTE SEDIMENTATION RATE > 140 mm/hr (0-30)
[2020-10-06 15:10] LABS: INR 1.3 (0.8-3.0); PROTHROMBIN TIME 13.9 SECONDS (9.7-12.8)
[2020-10-06] MEDS ORDERED: TYLENOL 325MG325 MG PO (16:47)
[2020-10-06] MEDS ORDERED: CORDARONE200 MG/TAB PO (16:48)
[2020-10-06] MEDS ORDERED: ASPIRIN 81M81 MG/TA2 PO (16:49)
[2020-10-06] MEDS ORDERED: GENTLE LAXATIVE10 MG RC (16:49)
[2020-10-06] MEDS ORDERED: DULCOLAX STOOL100 MG PO (16:50)
[2020-10-06] MEDS ORDERED: CYMBALTA 60MG60 MG PO (16:50)
[2020-10-06] MEDS ORDERED: LOVENOX 100100 MG/ML SQ (16:53)
[2020-10-06] MEDS ORDERED: FERROUS SU325 MG/TAB PO (16:54)
[2020-10-06] MEDS ORDERED: NORCO 325 MG-7.1 TAB PO (16:55)
[2020-10-06] MEDS ORDERED: INSULIN AS100 UNIT/3 SQ (16:56)
[2020-10-06] MEDS ORDERED: LEVEMIR FLEX100 U/ML SQ ×2 (16:57→17:00)
[2020-10-06] MEDS ORDERED: LEVAQUIN 2250 MG/TAB PO (17:01)
[2020-10-06] MEDS ORDERED: GLUCOPHAGE1000 MG PO (17:02)
[2020-10-06] MEDS ORDERED: ZOCOR 10MG10 MG PO (17:03)
[2020-10-06] MEDS ORDERED: MIRALAX PA17 GM/Dose PO (17:03)
--- NOTE | 2020-10-06 18:00 | NUR ---
PATIENT ADMITED INTO ROOM 323 FROM [facility]. SON AT BEDSIDE. PATIENT IS A&O. VSS WITH TELE INPLACE. NO C/O PAIN. NOTED RLE NECROTIC FOOT WITH 4 OF HER 5 TOES COMPLETLY BLACK. DRESSING TO RLE IS CD&I WITH ACEWRAP AND IS ELEVATED ON PILLOW. PATIENT REPORTS BEING AT THE CORRECTION FOR APPROX 1 MONTH, SEE MAR SENT. PATIENT HAS A HX OF PREVIOUS RIGHT BKA AND IS DIABETIC. BS IN ER WAS 97. SUPPER TRAY AT BEDSIDE. HEAD TO TOE ASSESSMENT COMPLETE. ORIENTED TO ROOM. CALL LIGHT IN REACH.
[2020-10-06 18:31] VITALS: BP 107/91; PULSE 96; TEMP 98.6
[2020-10-06 19:12] VITALS: BP 89/48; PULSE 82; TEMP 98.4
[2020-10-06 19:30] VITALS: BP 102/58
--- NOTE | 2020-10-06 19:30 | NUR ---
Report received, assumed care for multifocal button generator. Assessment complete. A&Ox3. Rating pain 2/10 to right foot-described as constant aching. Denies need for intervention. 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 Right foot in dressing-gauze/kerlix-CDI. Elevated on pillow with heal protetor on. Plan of care discussed for this shift to include HS meds/pain meds/antibiotics/calling for questions/concerns. Verbalizes understanding/denies needs. Call light in reach. Will monitor.
--- NOTE | 2020-10-06 22:06 | NUR ---
Called with c/o pain to right foot-rating pain 6/10 on pain scale-described as constant throbbing. [place] given per dr order. Dressing to right foot fell off during repositioning-replaced at this time time with 4x4s and kerlix. Purewick in place on low suction. Will continue to monitor.
[2020-10-06 23:42] VITALS: BP 98/55; PULSE 84; TEMP 99.2
--- NOTE | 2020-10-07 00:56 | NUR ---
Called with c/o pain to right foot. Rating pain 8/10-described as constant throbbing. To early for PO medications-Morphine given per dr order. Will monitor.
[2020-10-07 03:54] VITALS: BP 100/60; PULSE 78; TEMP 98.4
--- NOTE | 2020-10-07 06:30 | NUR ---
Unable to collect UA. Urine from earlier in shift dumped prior to collection.
[2020-10-07 07:13] LABS: BASO # 0.1 (0.0-0.2); BASO % 0.6 % (0.0-2.0); EOS # 0.5 (0.0-0.7); EOS % 5.1 % (0-4.0); GRAN # 5.8 (1.4-6.5); GRAN % 54.8 % (42.2-75.2); LYMPH # 3.1 (1.2-3.4); MEAN CELL VOLUME 87 fl (80.0-100.0); MEAN CORPUSCULAR HGB CONC 30 g/dl (33.0-37.0); MEAN PLATELET VOLUME 9.7 fl (7.4-10.4); MONO # 1.1 (0.1-0.6); MONO % 9.9 % (1.7-9.3); RED BLOOD COUNT 2.98 M/mm3 (4.10-5.30); REDCELL DISTRIBUTION WIDTH-CV 16.5 % (11.5-14.5)
[2020-10-07 07:14] LABS: HEMATOCRIT 25.8 % (37.0-47.0); HEMOGLOBIN 7.6 g/dl (12.5-16.0); MEAN CORPUSCULAR HEMOGLOBIN 26 pg (27.0-31.0); PLATELET COUNT 467 K/mm3 (130-400)
[2020-10-07 07:21] LABS: CREATININE, serum 0.88 (0.52-1.25); POTASSIUM 4.8 mmol/L (3.4-5.0)
--- NOTE | 2020-10-07 08:00 | NUR ---
PATIENT IS ORIENTED BUT DROWSY THIS AM. PATIENT RECEIVED PAIN MEDS THIS AM FOR C/O PAIN IN RLE. PATIENT HAS NACROTIC RIGHT FOOT IN WHICH 4 TOES ARE COMPLETELY BLACK. DRESSING INPLACE TO RIGHT FOOT. PATIENT HAD PREVIOUS LEFT BKA. PATIENT HAS HX OF DM AND WAS ADMITED FROM A LONGTERM. DNR STATUS. VSS WITH TELE INPLACE. TOLERATING ADA DIET. AM BS WAS 134, NO SSI REQUIRED. BREAKFAST TRAY AT BEDSIDE. AM MEDS GIVEN. HEAD TO TOE ASSESSMENT COMPLETE. NO OTHER NEEDS AT THIS TIME. CALL LIGHT IN REACH.
[2020-10-07 08:08] VITALS: BP 121/70; PULSE 78; TEMP 98.8
--- NOTE | 2020-10-07 11:16 | NUR ---
Initial visit; Patient thanked Jewelry Bearing Maker for looking in on her and offering prayer, encouragement and comfort after learning of Rosalinda's diagnosis. Jewelry Bearing Maker will follow up.
--- NOTE | 2020-10-07 11:22 | NUR ---
Plan is to return to [facility] for rehab services. SW met with patient and Enedina . DPOA is Enedina. Secondary contact son Dave . Patient reports that she has been hospitallized or in rehad since May of this year. Patient shares that she was in a [facility] and ran out of care days and ending up back in the hospital. Patient shares that her PCP is Dr. Youssef and rx is obtained from [facility] in [place]. Patient reports that she uses a wheelchair due to amputation and potential double amputee. Patient shares she also sees Dr. Ruiz and has in the past uses [facility]. Patient reports wanting to go home however she can not transfer or take care of self at home. Patient indicated that she has a DPOA and it is on file at [facility]. Pain is rated at a 5 out of 10 per patient with movement. Educated patient on services with case management. LETTY.
[2020-10-07 11:39] VITALS: BP 94/53; PULSE 79; TEMP 98.8
[2020-10-07 15:26] VITALS: BP 109/69; PULSE 79; TEMP 99
[2020-10-07 16:07] LABS: HEMATOCRIT 28.3 % (37.0-47.0); HEMOGLOBIN 8.2 g/dl (12.5-16.0)
[2020-10-07 19:50] VITALS: BP 93/52; PULSE 86; TEMP 99.3
--- NOTE | 2020-10-07 20:00 | NUR ---
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 Assessment complete. A&Ox3. Rating pain 7/10 to right foot-desribed as constant throbbing-norco given per dr order. Dressing to right foot CDI-gauze/kerlix. Plan of care discussed for this shift to include HS meds/pain control/antibiotics/calling for questions/concerns. Verbalizes understanding/denies needs. Call light in reach. Will monitor.
[2020-10-07 23:23] VITALS: BP 102/56; PULSE 79; TEMP 98.9
[2020-10-08 03:31] VITALS: BP 123/55; PULSE 84; TEMP 98.9
--- NOTE | 2020-10-08 05:48 | NUR ---
Rested well this shift. Adequate pain control with PO pain medications. Right AC INT flushes without difficulty. Right lower extremity elevated on pillow. Denies current needs. Call light in reach. Will monitor.
[2020-10-08 07:06] LABS: BASO # 0.1 (0.0-0.2); BASO % 0.5 % (0.0-2.0); EOS # 0.8 (0.0-0.7); EOS % 6.3 % (0-4.0); GRAN # 7.2 (1.4-6.5); GRAN % 61.2 % (42.2-75.2); LYMPH # 2.5 (1.2-3.4); LYMPH % 21.5 % (20.0-51.0); MEAN CELL VOLUME 87 fl (80.0-100.0); MEAN CORPUSCULAR HGB CONC 30 g/dl (33.0-37.0); MEAN PLATELET VOLUME 10.2 fl (7.4-10.4); MONO # 1.2 (0.1-0.6); MONO % 9.7 % (1.7-9.3); PLATELET COUNT 477 K/mm3 (130-400); RED BLOOD COUNT 2.99 M/mm3 (4.10-5.30); REDCELL DISTRIBUTION WIDTH-CV 16.6 % (11.5-14.5)
[2020-10-08 07:11] LABS: CALCIUM 9.3 mg/dL (8.4-10.2); CREATININE, serum 0.72 (0.52-1.25); POTASSIUM 4.6 mmol/L (3.4-5.0)
[2020-10-08 07:15] LABS: HEMOGLOBIN 7.7 g/dl (12.5-16.0); MEAN CORPUSCULAR HEMOGLOBIN 26 pg (27.0-31.0)
[2020-10-08 07:20] VITALS: BP 117/38; PULSE 79; TEMP 98.5
[2020-10-08 07:56] LABS: COLLECTION METHOD CLEAN CATCH
--- NOTE | 2020-10-08 08:00 | NUR ---
PATIENT IS ORIENTED BUT DROWSY THIS AM. PATIENT C/O PAIN IN RLE RATED AT 5/10. GAVE PRN NORCO WITH AM MEDS. PATIENT HAS NACROTIC RIGHT FOOT IN WHICH 4 TOES ARE COMPLETELY BLACK. DRESSING INPLACE TO RIGHT FOOT IS CD&I. HEEL PROTECTORS TO BLE. PATIENT HAD PREVIOUS LEFT BKA. PATIENT HAS HX OF DM AND WAS ADMITED FROM A [facility]. DNR STATUS. VSS WITH TELE INPLACE. TOLERATING ADA DIET. AM BS WAS 139, NO SSI REQUIRED. BREAKFAST TRAY AT BEDSIDE. HEAD TO TOE ASSESSMENT COMPLETE. PATIENT PLAN IS TO TRANSFER TO [facility] FOR SURGERY. NO OTHER NEEDS AT THIS TIME. CALL LIGHT IN REACH.
[2020-10-08 08:04] LABS: MUCOUS Present /lpf; PH 5 (5-8); SQUAMOUS EPITHELIAL 0-2 /hpf; URINE APPEARANCE Clear; URINE BACTERIA None Seen /hpf; URINE BILIRUBIN Negative (NEGATIVE); URINE BLOOD 1+ (NEGATIVE); URINE COLOR Straw; URINE GLUCOSE Negative (NEGATIVE); URINE KETONE Negative (NEGATIVE); URINE LEUKOCYTE ESTERASE Negative (NEGATIVE); URINE NITRATE Negative (NEGATIVE); URINE PROTEIN(semi-quant) Negative (NEGATIVE); URINE RBC 0-2 /hpf; URINE UROBILINOGEN Negative (NEGATIVE)
[2020-10-08 11:58] VITALS: BP 104/50; PULSE 84; TEMP 98.5
--- NOTE | 2020-10-08 12:02 | NUR ---
SW attended rounds with physician at team. Patient could potentially be sent to [facility]. PA provided set up for that would be done by physician and team. SW will continue to follow.
[2020-10-08 16:00] VITALS: BP 105/45; PULSE 89; TEMP 98.9
--- NOTE | 2020-10-08 18:00 | NUR ---
MICRO NEVER CALLED BACK. NURSE CALLED LAB AND LEFT MESSAGE TO ADD SENSATIVITIES FROM WOUND CULTURE FOR ZOSYN & MERAPENUM PER
[2020-10-08 21:17] VITALS: BP 99/47; PULSE 82; TEMP 99.4
--- NOTE | 2020-10-08 21:40 | NUR ---
Pt. sitting up in bed. Pt. is A&OX3, assessment complete. INT to rt. ac patent. Dressing to rt. foot CDI. Pt. reports pain at a 4 on pain scale, gave pain per orders. Pt. denies further needs, call light within reach.
--- NOTE | 2020-10-08 22:16 | NUR ---
This nurse notified LANA Mota about pt. not having any antibiotics ordered at this time. LANA Mota asked this nurst to notifie Dr. Pandey about abx.
[2020-10-08 23:48] VITALS: BP 101/46; PULSE 84; TEMP 99.4
[2020-10-09 05:05] VITALS: BP 113/60; PULSE 81; TEMP 98.7
[2020-10-09 06:36] LABS: BASO # 0.1 (0.0-0.2); BASO % 0.5 % (0.0-2.0); EOS # 0.6 (0.0-0.7); EOS % 4.5 % (0-4.0); GRAN # 7.8 (1.4-6.5); GRAN % 59.7 % (42.2-75.2); LYMPH # 3.1 (1.2-3.4); LYMPH % 24.1 % (20.0-51.0); MEAN CELL VOLUME 85 fl (80.0-100.0); MEAN CORPUSCULAR HGB CONC 30 g/dl (33.0-37.0); MONO # 1.4 (0.1-0.6); MONO % 10.7 % (1.7-9.3); PLATELET COUNT 495 K/mm3 (130-400); RED BLOOD COUNT 3.04 M/mm3 (4.10-5.30); REDCELL DISTRIBUTION WIDTH-CV 16.4 % (11.5-14.5)
[2020-10-09 06:39] LABS: HEMATOCRIT 25.8 % (37.0-47.0); HEMOGLOBIN 7.7 g/dl (12.5-16.0); MEAN CORPUSCULAR HEMOGLOBIN 25 pg (27.0-31.0)
[2020-10-09 06:43] LABS: CALCIUM 9.3 mg/dL (8.4-10.2); CREATININE, serum 0.7 (0.52-1.25); POTASSIUM 4.6 mmol/L (3.4-5.0)
[2020-10-09 07:20] VITALS: BP 129/56; PULSE 80; TEMP 98.6
[2020-10-09 11:10] VITALS: BP 93/54; PULSE 77; TEMP 98.4
[2020-10-09 16:35] VITALS: BP 119/78; PULSE 98; TEMP 98.6
[2020-10-09 19:02] VITALS: BP 88/61; PULSE 85; TEMP 99.5
--- NOTE | 2020-10-09 19:27 | NUR ---
Patient doing well throughout the day. Purwick in place, patient voiding clear yellow urine. Pain medications given this afternoon for RLE pain. Dressing to RLE changed this AM, toes appear black, redness to right foot. Antibiotics infusing per orders to right AC IV. Denies further needs at this time. Report to night clerk auditor.
--- NOTE | 2020-10-09 21:00 | NUR ---
PT IN BED, IS ALERT AND ORIENTED X4. HAS PUREWICK IN PLACE, URINE YELLOW. HAS INT TO RIGHT AC, FLUSHES WELL. RT FOOT WITH NECROTIC TOES, DRY DRSG REPLACED, HEEL PROTECTOR ON. DENIES PAIN AT THIS TIME.
[2020-10-09 23:57] VITALS: BP 101/63; PULSE 84; TEMP 98.7
--- NOTE | 2020-10-10 03:12 | NUR ---
PT AWAKE, RATES PAIN TO RT FOOT 8/10, NORCO GIVEN.
[2020-10-10 04:03] VITALS: BP 108/65; PULSE 79; TEMP 98
--- NOTE | 2020-10-10 05:55 | NUR ---
IV ANTIBIOTICS INFUSING TO PATENT RT AC SITE. REPORTS GOOD PAIN RELIEF WITH NORCO.
[2020-10-10 07:17] LABS: BASO # 0.1 (0.0-0.2); BASO % 0.6 % (0.0-2.0); EOS # 0.7 (0.0-0.7); EOS % 4.8 % (0-4.0); GRAN # 8.2 (1.4-6.5); GRAN % 59.6 % (42.2-75.2); HEMOGLOBIN 7.5 g/dl (12.5-16.0); LYMPH # 3.4 (1.2-3.4); LYMPH % 24.6 % (20.0-51.0); MEAN CELL VOLUME 85 fl (80.0-100.0); MEAN CORPUSCULAR HEMOGLOBIN 26 pg (27.0-31.0); MEAN CORPUSCULAR HGB CONC 30 g/dl (33.0-37.0); MEAN PLATELET VOLUME 9.8 fl (7.4-10.4); MONO # 1.3 (0.1-0.6); MONO % 9.7 % (1.7-9.3); PLATELET COUNT 517 K/mm3 (130-400); RED BLOOD COUNT 2.93 M/mm3 (4.10-5.30); REDCELL DISTRIBUTION WIDTH-CV 16.4 % (11.5-14.5)
[2020-10-10 07:18] LABS: CALCIUM 9.3 mg/dL (8.4-10.2); CREATININE, serum 0.73 (0.52-1.25); POTASSIUM 4.7 mmol/L (3.4-5.0)
[2020-10-10 08:18] VITALS: BP 124/48; PULSE 74; TEMP 98.5
--- NOTE | 2020-10-10 08:40 | NUR ---
Patient in bed resting. Alert and oriented x 3. Assessment complete. Denies pain at this time. Dressing to right foot remains intact. IV to RAC without complications. Patient denies further needs at this time.
[2020-10-10 12:13] VITALS: BP 106/81; PULSE 79; TEMP 98.7
[2020-10-10 15:50] VITALS: BP 106/81; PULSE 79; TEMP 98.7
--- NOTE | 2020-10-10 17:06 | NUR ---
Report called to Jade BARAHONA at [facility].
== END 2020-10-10 16:30 | disposition short-term general hospital (02) | DRG 300 ==
LOC: COL.ER 11:39 → SURG 16:09
PROVIDERS: Personal Emergency Response Attendant; Physician Assistant; ADMIT Emergency Medicine
DX: E11.52 Type 2 diabetes mellitus with diabetic peripheral angiopathy with gangrene (principal); L03.115 Cellulitis of right lower limb; Z68.41 Body mass index [BMI] 40.0-44.9, adult; B95.5 Unspecified streptococcus as the cause of diseases classified elsewhere; I48.91 Unspecified atrial fibrillation; I10 Essential (primary) hypertension; F32.9 Major depressive disorder, single episode, unspecified; D64.9 Anemia, unspecified; D47.3 Essential (hemorrhagic) thrombocythemia; Z66 Do not resuscitate; E78.5 Hyperlipidemia, unspecified; E66.01 Morbid (severe) obesity due to excess calories; Z86.711 Personal history of pulmonary embolism; Z89.512 Acquired absence of left leg below knee; Z79.82 Long term (current) use of aspirin; Z79.4 Long term (current) use of insulin; Z87.891 Personal history of nicotine dependence; Z79.01 Long term (current) use of anticoagulants; Z20.822 Contact with and (suspected) exposure to COVID-19
CPT/HCPCS: 99223-AI; 99232-AI; 99233-AI; 99239; J1580; J1650; J1815; J2270; J2405; J2543; J3370; J3480; J7030; J7050

== ENCOUNTER 2021-04-01 21:48 | Emergency (ER) | payer MEDICARE, OTHER, MEDICAID ==
[~2021-04-01] VITALS: Wt 100.0 kg
[~2021-04-01 21:48] MED LIST changes: +CORDARONE200 MG/TAB PO; +DULCOLAX STOOL100 MG PO; +GENTLE LAXATIVE10 MG RC; +GLUCOPHAGE1000 MG PO; +INSULIN AS100 UNIT/3 SQ; +LEVAQUIN 2250 MG/TAB PO; +LEVEMIR FLEX100 U/ML SQ; +LOVENOX 100100 MG/ML SQ; +NORCO 325 MG-7.1 TAB PO
[2021-04-01 22:54] LABS: BASO # 0.1 K/mm3 (0.0-0.2); BASO % 0.8 % (0.0-2.0); EOS # 0.7 K/mm3 (0.0-0.7); GRAN # 8.1 K/mm3 (1.4-6.5); GRAN % 62.9 % (42.2-75.2); HEMOGLOBIN 10.5 g/dl (12.5-16.0); LYMPH # 2.9 K/mm3 (1.2-3.4); LYMPH % 22.2 % (20.0-51.0); MEAN CELL VOLUME 92 fl (80.0-100.0); MEAN CORPUSCULAR HEMOGLOBIN 29 pg (27-31); MEAN CORPUSCULAR HGB CONC 31 g/dl (33.0-37.0); MEAN PLATELET VOLUME 9.6 fl (7.4-10.4); MONO # 1.1 K/mm3 (0.1-0.6); MONO % 8.4 % (1.7-9.3); PLATELET COUNT 455 K/mm3 (130-400); RED BLOOD COUNT 3.66 M/mm3 (4.10-5.30)
[2021-04-01 23:07] LABS: HEMATOCRIT 33.8 % (37.0-47.0)
[2021-04-01 23:12] LABS: ALBUMIN 3.5 gm/dL (3.4-4.8); BILIRUBIN,TOTAL 0.4 mg/dL (0.2-1.2); CALCIUM 9.6 mg/dL (8.4-10.2); CREATININE, serum 1.16 mg/dL (0.57-1.11); POTASSIUM 4.6 mmol/L (3.5-4.5); TOTAL PROTEIN 7.3 gm/dL (6.2-8.1)
[2021-04-01 23:18] LABS: COLLECTION METHOD CATHETER
[2021-04-01 23:31] LABS: MUCOUS Present (NOT PRESENT); PH 5 (5-8); URINE APPEARANCE Cloudy (CLEAR/HAZY); URINE BACTERIA None Seen /hpf (NONE SEEN); URINE BILIRUBIN Negative (NEGATIVE); URINE BLOOD 2+ (NEGATIVE); URINE COLOR Yellow (YELLOW); URINE GLUCOSE Negative (NEGATIVE); URINE KETONE Negative (NEGATIVE); URINE LEUKOCYTE ESTERASE 3+ (NEGATIVE); URINE NITRATE Negative (NEGATIVE); URINE PROTEIN(semi-quant) 2+ (NEGATIVE); URINE RBC 20-50 /hpf (0-2); URINE UROBILINOGEN Negative (NEGATIVE)
[2021-04-02] MEDS ORDERED: CEFTIN500 MG PO (01:30)
[2021-04-02 01:56] VITALS: BP 150/89; PULSE 81; TEMP 98.6
== END 2021-04-02 01:56 | disposition home or self-care (01) ==
LOC: COL.ER 21:48
PROVIDERS: Emergency Medicine
DX: N39.0 Urinary tract infection, site not specified (principal); E11.51 Type 2 diabetes mellitus with diabetic peripheral angiopathy without gangrene; Z86.711 Personal history of pulmonary embolism; Z79.82 Long term (current) use of aspirin; Z79.4 Long term (current) use of insulin; Z79.84 Long term (current) use of oral hypoglycemic drugs
CPT/HCPCS: J0696

== ENCOUNTER → 2021-04-21 | Outpatient (CLI) | payer MEDICARE, OTHER, MEDICAID ==
[~2021-04-21] MED LIST changes: +CEFTIN500 MG PO
== END ==
LOC: COL.RAD 13:49
DX: M48.061 Spinal stenosis, lumbar region without neurogenic claudication (principal); M48.56XA Collapsed vertebra, not elsewhere classified, lumbar region, initial encounter for fracture

== ENCOUNTER 2021-04-25 15:55 | Emergency (ER) | payer MEDICARE, OTHER, MEDICAID ==
[~2021-04-25] VITALS: Ht 162.6 cm; Wt 100.0 kg
[2021-04-25 15:58] VITALS: TEMP 98.3
[2021-04-25] MEDS ORDERED: MIRALAX PA17 GM/Dose PO (17:42)
[2021-04-25 18:17] VITALS: BP 140/62; PULSE 84
== END 2021-04-25 18:24 | disposition home or self-care (01) ==
LOC: COL.ER 15:55
DX: K59.00 Constipation, unspecified (principal); E11.9 Type 2 diabetes mellitus without complications; Z86.711 Personal history of pulmonary embolism; Z90.49 Acquired absence of other specified parts of digestive tract; Z90.3 Acquired absence of stomach [part of]; Z79.4 Long term (current) use of insulin; Z79.84 Long term (current) use of oral hypoglycemic drugs; Z79.01 Long term (current) use of anticoagulants